=== PATIENT | male | born 1965 | race Native Hawaiian/Other Pacific Islander ===

== ENCOUNTER 2019-01-27 13:02 | Inpatient (IN) | payer BC ==
[2019-01-27] MEDS ORDERED: ASPIRIN 81 MG PO STA (13:19)
[2019-01-27] MEDS: NITROGLYCERIN SL TABS 0.4 MG TAB SUBLINGUAL STA ×2 (13:25→13:31)
[2019-01-27] MEDS: SODIUM CHLORIDE 0.9% 1,000 ML IV STA ×2 (13:34→15:30)
[2019-01-27] MEDS ORDERED: ONDANSETRON 4 MG/2 ML VIAL IVP STA (13:35)
[2019-01-27 13:43] LABS: Basophils # (A) 0.1 k/uL (0-0.2); Basophils % (A) 2 %; Eosinophils # (A) 0.1 k/uL (0-0.7); Eosinophils % (A) 1 %; HCT 46.6 % (39.0-53.0); HGB 15.6 gm/dL (13.0-17.5); Lymphocytes # (A) 2.8 k/uL (1.0-4.8); Lymphocytes % (A) 39 %; MCH 28.6 pg (25.0-35.0); MCHC 33.4 g/dL (31.0-37.0); MCV 85.5 fL (80.0-100.0); Mean Platelet Volume 6.2; Monocytes # (A) 0.3 k/uL (0-1.0); Monocytes % (A) 4 %; Neutrophils # (A) 3.8 k/uL (1.3-7.7); Neutrophils % (A) 52 %; Platelet Count 287 k/uL (150-450); RBC 5.46 m/uL (4.30-5.90); RDW 12.6 % (11.5-15.5); WBC 7.3 k/uL (3.8-10.6)
[2019-01-27] MEDS ORDERED: HEPARIN SODIUM,PORCINE 5,000 UNIT/ML 1 ML VIAL IV STA (13:43)
[2019-01-27] MEDS ORDERED: ATORVASTATIN 80 MG TAB PO STA (13:45)
--- NOTE | 2019-01-27 13:45 | ED ---
Chest Pain HPI - General Chief Complaint: Chest Pain Stated Complaint: chest pain Time Seen by Provider: 01/27/19 13:14 Source: patient, RN notes reviewed Mode of arrival: wheelchair Limitations: no limitations - History of Present Illness Initial Comments: This a 53-year-old male with no prior history of heart disease who presents with complaints of the onset 30 minutes prior to arrival of retrosternal chest pain he states is about 4/10 severity with some radiation to his jaw. He states he's never anything like this before except for about a week ago he had an episode like this lasted about 30 minutes and then resolved spontaneously. He does state he has some nausea and sweaty also started developing some vomiting. Patient does state he is a nonsmoker MD Complaint: chest pain - Related Data Home Medications Medication Instructions Recorded Confirmed Insulin Aspart (For Pump) [NovoLOG 0.01 unit SQ-PUMP CONTINUOUS 01/27/19 01/27/19 (For Pump)] Allergies Allergy/AdvReac Type Severity Reaction Status Date / Time No Known Allergies Allergy Verified 01/27/19 13:29 Review of Systems ROS Statement: Those systems with pertinent positive or pertinent negative responses have been documented in the HPI. ROS Other: All systems not noted in ROS Statement are negative. EKG Findings - EKG Results: EKG: interpreted by ERMD (EKG done at the time of arrival showed a normal sinus rhythm a [address] depression in the anterior and lateral leads. He appeared of 01 42 ventricular rate 76 and QRS 92 QT since QTC 44/454 this is changed from an EKG done in his doctor's office on 11/20/2018 which showed a normal sinus rhythm.) Past Medical History Past Medical History: Asthma, Diabetes Mellitus History of Any Multi-Drug Resistant Organisms: None Reported Additional Past Surgical History / Comment(s): eye surgery Past Psychological History: No Psychological Hx Reported Smoking Status: Never smoker Past Alcohol Use History: None Reported Past Drug Use History: None Reported General Exam - General Exam Comments Initial Comments: This is a well-developed well-nourished awake alert oriented 3 male who does appear to be in distress Limitations: no limitations General appearance: alert, anxious, in distress Head exam: Present: atraumatic, normocephalic, normal inspection Eye exam: Present: normal appearance, PERRL, EOMI. Absent: scleral icterus, conjunctival injection, periorbital swelling ENT exam: Present: normal exam, mucous membranes moist Neck exam: Present: normal inspection. Absent: tenderness, meningismus, lymphadenopathy Respiratory exam: Present: normal lung sounds bilaterally. Absent: respiratory distress, wheezes, rales, rhonchi, stridor Cardiovascular Exam: Present: regular rate, normal rhythm, normal heart sounds. Absent: systolic murmur, diastolic murmur, rubs, gallop, clicks GI/Abdominal exam: Present: soft, normal bowel sounds. Absent: distended, tenderness, guarding, rebound, rigid Extremities exam: Present: normal inspection, full ROM, normal capillary refill. Absent: tenderness, pedal edema, joint swelling, calf tenderness Back exam: Present: normal inspection Neurological exam: Present: alert, oriented X3, CN II-XII intact Psychiatric exam: Present: normal affect, normal mood Skin exam: Present: warm, dry, intact, normal color. Absent: rash Course Vital Signs 01/27/19 01/27/19 01/27/19 13:05 13:31 13:41 Temperature 98.2 F Pulse Rate 84 84 87 Respiratory 18 18 18 Rate Blood Pressure 129/68 173/81 148/81 O2 Sat by Pulse 100 99 100 Oximetry 01/27/19 13:45 Temperature Pulse Rate 105 H Respiratory 20 Rate Blood Pressure 140/80 O2 Sat by Pulse 100 Oximetry - Reevaluation(s) Reevaluation #1: 01/27/19 13:39 Patient continued had pain in spite of the initial treatment repeat EKG did show evidence of ST elevation myocardial infarction with anteroseptal and lateral injury pattern. Ventricular rate 87. Interval 142 QRS 100 QT since QTC 42/483 Reevaluation #2: 01/27/19 14:40 Case was discussed with cardiology Dr. Cohen it comes the emergency department see the patient also did discuss the case with Dr. Yepez. Chest Pain MDM - MDM Patient had changes EKG indicative of an acute STEMI. Patient did go to the [facility]. Critical Care Time Critical Care Time: Yes Critical Care Time: 31 minutes of critical care time which included the initial presentation with history physical lab orders and x-ray orders will for reevaluation the patient to responsive therapy discussion with cardiology discussion with Dr. Yepez. Disposition Clinical Impression: ST elevation myocardial infarction (STEMI), Chest pain, Acute coronary syndrome Disposition: ADMITTED IP TO THIS HOSP Condition: Serious
[2019-01-27 13:51] LABS: ALT 28 U/L (21-72); AST 31 U/L (17-59); African American GFR (CKD) >90 (>60 ml/min/1.73 sqM); Albumin 4.3 g/dL (3.5-5.0); Alkaline Phosphatase 147 U/L (38-126); Anion Gap 12 mmol/L; Blood Urea Nitrogen 19 mg/dL (9-20); Calcium 9.6 mg/dL (8.4-10.2); Carbon Dioxide 22 mmol/L (22-30); Chloride 105 mmol/L (98-107); Glucose 237 mg/dL (74-99); Magnesium 1.9 mg/dL (1.6-2.3); Potassium 3.9 mmol/L (3.5-5.1); Sodium 139 mmol/L (137-145); Total Bilirubin 0.6 mg/dL (0.2-1.3); Total Protein 7.5 g/dL (6.3-8.2)
[2019-01-27] MEDS ORDERED: IV FLUID CONTINUATION 800 ML IV ONE (13:55)
[2019-01-27] MEDS ORDERED: MIDAZOLAM (PF) 2 MG/2 ML VIAL IV ONE ×2 (14:06→14:07)
[2019-01-27] MEDS: HYDROmorphone 1 MG/ML 1 ML SYRINGE IVP ONE ×2 (14:07→14:26)
[2019-01-27] MEDS ORDERED: HEPARIN SODIUM 1,000 UN/ML (10ML VL) IV ONE (14:13)
[2019-01-27] MEDS ORDERED: TIROFIBAN BOLUS 12.5MG/250 ML BAG IV ONE (14:14)
[2019-01-27 14:17] LABS: D-Dimer 0.29 mg/L FEU (<0.60); INR 0.9 (<1.2); Prothrombin Time 9.8 sec (9.0-12.0)
[2019-01-27] MEDS ORDERED: TIROFIBAN 12.5MG-250ML NS 250 ML IV ONE (14:17)
[2019-01-27] MEDS ORDERED: niCARdipine Syringe (1,000 mcg/10 mL) INTRACORON ONE (14:31)
[2019-01-27] MEDS ORDERED: IOPAMIDOL-370 100ML BTL INJ ONE ×2 (14:34→14:43)
[2019-01-27] MEDS ORDERED: NITROGLYCERIN 1000MCG/10ML SYRINGE INTRACORON ONE (14:39)
[2019-01-27] MEDS ORDERED: TICAGRELOR 90 MG TAB PO ONE (14:56)
[2019-01-27] MEDS ORDERED: RX INFO: IV CONTRAST WAS GIVEN 1 EACH MISC MISCELLANE PRN (15:05)
[2019-01-27] MEDS ORDERED: NITROGLYCERIN SL TABS 0.4 MG TAB SUBLINGUAL PRN (15:05)
[2019-01-27] MEDS ORDERED: ATROPINE SULFATE 0.1 MG/ML 10ML SYRINGE IV PRN (15:05)
[2019-01-27] MEDS ORDERED: MAG HYDROX/AL HYDROX/SIMETH 30 ML CUP PO PRN (15:05)
[2019-01-27] MEDS ORDERED: ZOLPIDEM 5 MG TAB PO PRN (15:05)
[2019-01-27] MEDS: SODIUM CHLORIDE 0.9% 1,000 ML IV SCH (15:30)
[2019-01-27 15:38] LABS: Glucose,Whole Blood 200 mg/dL (75-99)
[2019-01-27] MEDS ORDERED: INSULIN DETEMIR (LEVEMIR) 100 UNIT/ML SYR SQ ONE (17:00)
[2019-01-27] MEDS: INSULIN ASPART (NovoLOG) 100 UNIT/ML VIAL SQ SCH ×2 (17:19→21:01)
[2019-01-27 17:35] LABS: Glucose,Whole Blood 174 mg/dL (75-99)
[2019-01-27 20:57] LABS: Glucose,Whole Blood 284 mg/dL (75-99)
[2019-01-27] MEDS ORDERED: METOPROLOL TARTRATE 12.5 MG TAB PO SCH (21:00)
[2019-01-27] MEDS: ATORVASTATIN 80 MG TAB PO SCH (21:01)
[2019-01-27] MEDS: LOSARTAN 50 MG TAB PO SCH (21:01)
--- NOTE | 2019-01-27 21:10 | CC ---
CARDIAC CATHETERIZATION REPORT DATE OF SERVICE: 01/27/2019 PROCEDURES: 1. Left heart catheterization and coronary angiography. 2. Percutaneous transluminal coronary angioplasty and stenting of totally occluded mid LAD in the setting of an acute anterior ST-elevation myocardial infarction with 2 drug-eluting stents. 3. Percutaneous transluminal coronary angioplasty and stenting of mid circumflex coronary artery with a drug-eluting stent. PERFORMED BY: Dr. Damien Spicer. SEDATION: Moderate conscious sedation time was 56 minutes. Patient was administered Versed and Dilaudid. His oxygen saturation, hemodynamics and EKG were monitored closely. CLINICAL INFORMATION: Mr. Miguel Mendoza is a 53-year-old type 1 diabetic who is on insulin pump, came into the hospital with chest pain. He had chest pain on and off for about a week, which he ignored. He came in today with chest pain and had lateral wall ST-segment depression. However, while he was in the ER he developed another bout of chest pain, had nausea, vomiting and then demonstrated ST-elevation in anterolateral leads and was advised prompt cardiac catheterization. He was brought up to the cardiac labor conciliator. I saw the patient in the lab, explained to him the procedure and went on to perform this expeditiously after talking to his daughter. PROCEDURE NOTE: Under local anesthesia and strict aseptic precautions, a 6-Slovenian introducer was placed in the right femoral artery. I started out with a left Jasmina catheter. Initially I used a JL4, but it was not easy to cannulate. I switched over to a JL3.5 guide catheter and cannulated the left coronary artery. I noted that the LAD was totally occluded in the mid portion and circumflex had a 90% mid lesion after obtuse marginal branch and the posterolateral branch. I performed intervention of the LAD and circumflex expeditiously and then performed coronary angiography of the RCA and checked pressures in the left ventricle but did not perform an LV-gram. CARDIAC CATHETERIZATION FINDINGS: The left ventricular end-diastolic pressure was 18 mmHg without any gradient across the aortic valve. CORONARY ANGIOGRAPHY FINDINGS: LEFT MAIN CORONARY ARTERY: Short, patent, disease-free vessel that immediately bifurcates into LAD and circumflex. LEFT ANTERIOR DESCENDING CORONARY ARTERY: This vessel is totally occluded in the mid portion after a small diagonal and septal branch with some thrombus within the vessel and no antegrade flow. LEFT POSTERIOR CIRCUMFLEX CORONARY ARTERY: Probably a codominant or nondominant vessel. Gives off a first obtuse marginal and then there are 2 small branches that run in the AV groove. Then the continuation of circumflex has an 80% eccentric lesion, and the caliber of the vessel improves and it runs in the posterolateral distribution. Mid circumflex therefore has an 80% eccentric lesion with haziness, raising the possibility of a thrombus in circumflex as well. RIGHT CORONARY ARTERY: Technically dominant vessel. No significant disease. Gives off the PDA branch distally and a small PLV. No significant disease. Only minor irregularities noted. Left ventriculogram was not performed. PERCUTANEOUS CORONARY INTERVENTION PROCEDURE DETAILS: Using a 3.5 left Jasmina guide catheter, I cannulated the left coronary artery and I used a run-through wire to cross the lesion. One single inflation was given at the site of total occlusion with a 2.5 caliber 12 mm Trek balloon. The entire vessel opened up with good flow. Patient had relief of chest pain and improvement in EKG changes. I then deployed a 15 mm long 3.0 caliber Xience stent at the site of total occlusion, and proximal to it there was another lesion of about 50%. This was addressed with an 8 mm 3.0 caliber Xience stent. Excellent angiographic result was achieved without complication. I then used the same wire and crossed the circumflex lesion without predilatation. A 15 mm long 2.5 caliber Xience stent was deployed with excellent angiographic result. Patient had mild chest discomfort and also some EKG changes in I, aVL and in apical leads as well. The patient received about 5500 units of heparin totally and also received Aggrastat drip and his ACT was 262. Patient received 180 mg of Brilinta. Excellent angiographic result was achieved without complication. The sheath was taken out and Angio-Seal device used to secure hemostasis. Because of some oozing, I applied a FemoStop. The patient tolerated procedure well without complication. Results were discussed with the patient and his daughter. I also spoke to his primary care physician, Dr. Fierro. MMSKYLARL / CHAMPN: [id number] / MTDD
--- NOTE | 2019-01-27 21:49 | CONS ---
CONSULTATION DATE OF SERVICE: 01/27/2019 This is a 53-year-old patient with type 1 diabetes mellitus, on an insulin pump, under the care of Dr. Alejandrina Fierro. He came into the hospital with complaints of chest tightness and pressure and retrosternal discomfort, 4/10 in severity, with radiation to the jaw. He had similar symptoms about a week ago, less intense, that lasted about 30 minutes, but he did not seek medical attention. He also had some nausea and diaphoresis. He came into the hospital with similar complaints and had ST-segment depression in lateral leads. There were prominent precordial T-waves noted. Subsequently he profound chest discomfort and emesis, and repeat EKG revealed significant ST elevation suggestive of acute anterior ST-elevation SC. He was immediately brought into the clinical laboratory science professor after being seen by nurse practitioner Dr. Nelly Cohen. I saw the patient in the clinical laboratory science professor, evaluated him and went and spoke to his daughter as well. Patient's presentation was that of an acute anterior ST- elevation SC with a similar episode and ongoing chest pain for about a week or so. He has no hypertension, does not take any other medications. He is on insulin pump and tells me that his A1c was good. MEDICATIONS: Insulin (on insulin pump). PAST MEDICAL HISTORY: Past medical history is remarkable for bronchial asthma and type 1 diabetes. No history of any previous major surgeries. ALLERGIES: NONE. PHYSICAL EXAMINATION: Blood pressure 150/80. Pulse rate is about 80 per minute, regular. HEENT unremarkable. Fundus was not examined by me. Neck is supple. No JVD. I do not hear a carotid bruit. Heart exam reveals S1, S2. Distant heart sounds. No significant murmurs. Lungs reveal decent air entry. Abdomen is soft. Lower extremities reveal diminished pulses. Central nervous system grossly within normal limits. EKG revealed anterior ST elevation involving lead I, aVL, V1 to V5. IMPRESSION: 1. Acute anterior wall ST-elevation myocardial infarction. 2. Type 1 diabetes, on insulin pump. RECOMMENDATIONS: I recommended prompt cardiac catheterization and PCI. I then proceeded to perform this expeditiously. Moderate conscious sedation time was 56 minutes. MMODL / IJN: [id number] /
[2019-01-28 05:09] LABS: Basophils % (A) 1 %; Eosinophils # (A) 0.1 k/uL (0-0.7); Eosinophils % (A) 2 %; HCT 39.2 % (39.0-53.0); HGB 13.2 gm/dL (13.0-17.5); Lymphocytes # (A) 2.3 k/uL (1.0-4.8); Lymphocytes % (A) 31 %; MCH 28.7 pg (25.0-35.0); MCHC 33.7 g/dL (31.0-37.0); MCV 85.1 fL (80.0-100.0); Mean Platelet Volume 5.5; Monocytes # (A) 0.4 k/uL (0-1.0); Monocytes % (A) 5 %; Neutrophils # (A) 4.4 k/uL (1.3-7.7); Neutrophils % (A) 60 %; Platelet Count 277 k/uL (150-450); RDW 12.4 % (11.5-15.5); WBC 7.4 k/uL (3.8-10.6)
[2019-01-28 05:21] LABS: African American GFR (CKD) >90 (>60 ml/min/1.73 sqM); Anion Gap 6 mmol/L; Blood Urea Nitrogen 13 mg/dL (9-20); Calcium 8.4 mg/dL (8.4-10.2); Carbon Dioxide 26 mmol/L (22-30); Chloride 105 mmol/L (98-107); Glucose 194 mg/dL (74-99); Potassium 4.1 mmol/L (3.5-5.1); Sodium 137 mmol/L (137-145)
[2019-01-28 06:58] LABS: Glucose,Whole Blood 174 mg/dL (75-99)
[2019-01-28] MEDS: SODIUM CHLORIDE 0.9% 1,000 ML IV SCH (06:58)
[2019-01-28] MEDS ORDERED: INSULIN DETEMIR (LEVEMIR) 100 UNIT/ML SYR SQ SCH (07:00)
[2019-01-28] MEDS: INSULIN ASPART (NovoLOG) 100 UNIT/ML VIAL SQ SCH ×4 (07:00→15:44)
[2019-01-28] MEDS: TICAGRELOR 90 MG TAB PO SCH ×2 (08:40→20:03)
[2019-01-28] MEDS: ASPIRIN 81 MG PO SCH (08:40)
[2019-01-28] MEDS ORDERED: METOPROLOL TARTRATE 25 MG TAB PO SCH (09:00)
[2019-01-28 10:47] VITALS: BMI 31.4
--- NOTE | 2019-01-28 11:02 | PN ---
PROGRESS NOTE Mr. Mendoza presented with acute anterior OR yesterday underwent stenting of LAD and circumflex marginal/mid circumflex. He is doing well, hemodynamically stable. No chest pain. Right groin has a small area of ecchymosis, no bruit. Vitals are stable. Blood pressure 118/70, pulse rate is 78 per minute. S1, S2 heard normally. Heart sounds heard distantly. No significant murmurs. Lungs are clear. No JVD or carotid bruit. Right groin pulse is good. There is small area of ecchymosis, no bruit. I am recommending that we increase the metoprolol to 25 mg in the morning, 12.5 in the evening, increase activity, move him to telemetry later this evening. Echo will be performed today. MMODL / IJN: [id number] /
[2019-01-28 12:07] LABS: Glucose,Whole Blood 122 mg/dL (75-99)
--- NOTE | 2019-01-28 12:56 | ECHOF ---
Referral Reason:Ant STEMI MEASUREMENTS -------- HEIGHT: 160.0 cm WEIGHT: 74.8 kg BP: 110/70 LVIDd: 3.7 cm (3.9 - 5.3) LVPWd: 1.4 cm (0.6 - 1.1) IVSs: 1.4 cm LVIDs: 2.5 cm LVPWs: 1.5 cm LA Diam: 4.0 cm (2.7 - 3.8) LAESV Index (A-L): 27.62 ml/m Ao Diam: 3.0 cm (2.0 - 3.7) AV Cusp: 1.0 cm (1.5 - 2.6) LA Diam: 3.6 cm (2.7 - 3.8) MV EXCURSION: 15.965 mm (> 18.000) MV EF SLOPE: 119 mm/s (70 - 150) EPSS: 0.7 cm MV E Nirmal: 0.91 m/s MV DecT: 128 ms MV A Nirmal: 0.75 m/s MV E/A Ratio: 1.22 RAP: 5.00 mmHg RVSP: 43.00 mmHg TAPSE: 16.40 mm FINDINGS -------- Sinus rhythm. This was a techncally difficult study with suboptimal views, , Lumason utilized for enhancement of im ages. There is mild concentric left ventricular hypertrophy. Overall left ventricular systolic function i s moderately impaired with, an EF between 35 - 40 %. Apical anterior LV wall motion is hypokinetic. Apical lateral LV wall motion is hypokinetic. Apical inferior LV wall motion is hypokinetic. Apical septum LV wall motion is hypokinetic. Chama Hypokinesis. The right ventricle is normal in size. The left atrium is moderately dilated. Normal LA size by volume 22+/-6 ml/m2. The right atrial size is normal. 5.0mg OF Lumason UTLIZED: 2 OR MORE WALL SEGMENTS NOT VISUALIZED. IAS not well Visualized. The aortic valve is trileaflet, and appears structurally normal. No aortic stenosis or regurgitation. Mild mitral annular calcification present. Mild mitral regurgitation is present. Mild tricuspid regurgitation present. There is mild pulmonary hypertension. The right ventricular systolic pressure, as measured by Doppler, is 43.00mmHg. Trace/mild (physiologic) pulmonic regurgitation. The aortic root size is normal. There is no pericardial effusion. CONCLUSIONS -------- 1. Sinus rhythm. 2. This was a techncally difficult study with suboptimal views, , Lumason utilized for enhancement of images. 3. There is mild concentric left ventricular hypertrophy. 4. Overall left ventricular systolic function is moderately impaired with, an EF between 35 - 40 %. 5. Apical anterior LV wall motion is hypokinetic. 6. Apical lateral LV wall motion is hypokinetic. 7. Apical inferior LV wall motion is hypokinetic. 8. Apical septum LV wall motion is hypokinetic. 9. Chama Hypokinesis. 10. The right ventricle is normal in size. 11. The left atrium is moderately dilated. 12. The right atrial size is normal. 13. 5.0mg OF Lumason UTLIZED: 2 OR MORE WALL SEGMENTS NOT VISUALIZED. 14. IAS not well Visualized. 15. The aortic valve is trileaflet, and appears structurally normal. No aortic stenosis or regurgitat ion. 16. Mild mitral annular calcification present. 17. Mild mitral regurgitation is present. 18. Mild tricuspid regurgitation present. 19. There is mild pulmonary hypertension. 20. The right ventricular systolic pressure, as measured by Doppler, is 43.00mmHg. 21. Trace/mild (physiologic) pulmonic regurgitation. 22. The aortic root size is normal. 23. There is no pericardial effusion. ROUTING CLERK: Mallory Bullard RDCS
--- NOTE | 2019-01-28 13:25 | P.HPIM ---
History of Present Illness H&P Date: 01/28/19 Chief Complaint: chest pain This is a 53-year-old male patient of Dr. Campos with past medical history of diabetes mellitus type 2 diagnosed at age 24 on insulin pump for the past 12 years, mild intermittent asthma. Patient states that about one week ago he had an episode where he experienced sweating and chest pressure but it went away after 45 minutes. Yesterday he was working on his stomach and he had some chest pain along with sweats and he had to go in the house. He thought he was having heatstroke. He also experienced nausea and sweating and subsequently vomiting. He came into [facility] emergency center. Vital signs were stable. EKG showed ST elevation in the anterior lateral leads. Patient was called and acute STEMI and went directly to the Animal Nurse and found to have a totally occluded LAD and had 2 drug-eluting stents placed. Circumflex had 80% lesion status post drug-eluting stent. Patient was transferred to the intensive care unit where he is seen today. Patient's blood sugars have been elevated and we will plan to resume his insulin pump. He states he has all his supplies at the bedside. He denies having any chest pain, shortness of breath, lightheadedness or dizziness. He has been hemodynamically stable. Patient may transfer out of the intensive care unit later today. Review of Systems Constitutional: Reports fatigue, Reports sweats, Denies anorexia, Denies fever, Denies poor appetite Ears, nose, mouth and throat: Denies dysphagia, Denies headache, Denies nasal congestion, Denies nasal discharge, Denies sore throat Cardiovascular: Reports chest pain, Denies shortness of breath Respiratory: Denies cough, Denies cough with sputum, Denies dyspnea, Denies excessive sputum, Denies hemoptysis, Denies home oxygen, Denies wheezing Gastrointestinal: Reports nausea, Reports vomiting, Denies abdominal pain, Denies diarrhea Genitourinary: Denies dysuria, Denies urinary retention Musculoskeletal: Denies frequent falls, Denies gait dysfunction, Denies muscle weakness, Denies myalgias Integumentary: Denies pruritus, Denies rash, Denies wounds Neurological: Denies change in mentation, Denies change in speech, Denies confusion, Denies numbness, Denies seizures, Denies weakness Endocrine: Denies fatigue, Denies weight change Past Medical History Past Medical History: Asthma, Diabetes Mellitus History of Any Multi-Drug Resistant Organisms: None Reported Additional Past Surgical History / Comment(s): eye surgery Smoking Status: Never smoker Additional Past Alcohol Use History / Comment(s): patient is a lifelong nonsmoker. He denies any illicit drug use, alcohol use. - Past Family History Father Additional Family Medical History / Comment(s): Patient does not know anything about his father. Mother Additional Family Medical History / Comment(s): Mother is alive with no major medical problems. Patient has 1 brother and sisters with no major medical problems. Medications and Allergies Home Medications Medication Instructions Recorded Confirmed Type Insulin Aspart (For Pump) [NovoLOG 0.01 unit SQ-PUMP CONTINUOUS 01/27/19 01/27/19 History (For Pump)] Allergies Allergy/AdvReac Type Severity Reaction Status Date / Time No Known Allergies Allergy Verified 01/27/19 13:29 Physical Exam Vitals: Vital Signs Temp Pulse Resp BP BP Pulse Ox 01/28/19 10:00 68 10 L 103/68 94 L 01/28/19 09:30 82 19 107/70 93 L 01/28/19 09:00 78 15 105/60 94 L 01/28/19 08:30 76 14 105/60 92 L 01/28/19 08:00 98.9 F 80 12 110/67 93 L 01/28/19 07:52 97 01/28/19 07:30 77 14 125/62 91 L 01/28/19 07:00 77 19 106/70 96 01/28/19 06:30 72 20 96/58 96 01/28/19 06:00 80 17 110/70 96 01/28/19 05:30 73 18 101/68 95 01/28/19 05:00 74 12 106/65 97 01/28/19 04:30 78 18 108/74 95 01/28/19 04:00 98.9 F 78 20 97/57 93 L 01/28/19 03:30 80 16 94/58 92 L 01/28/19 03:00 80 20 117/70 91 L 01/28/19 02:30 76 21 107/71 92 L 01/28/19 02:00 83 22 99/60 91 L 01/28/19 01:30 81 19 98/61 91 L 01/28/19 01:00 77 18 100/64 90 L 01/28/19 00:30 79 16 107/56 91 L 01/28/19 00:00 99.3 F 85 18 112/71 92 L 01/27/19 23:30 82 20 120/80 91 L 01/27/19 23:00 84 21 112/75 90 L 01/27/19 22:30 81 17 119/78 91 L 01/27/19 22:00 80 18 122/85 91 L 01/27/19 21:30 85 16 125/78 92 L 01/27/19 21:00 87 21 129/78 94 L 01/27/19 20:44 98.7 F 87 17 116/69 93 L 01/27/19 20:40 82 15 116/69 94 L 01/27/19 20:30 80 20 138/74 94 L 01/27/19 20:20 86 16 138/74 94 L 01/27/19 20:10 91 21 126/77 93 L 01/27/19 20:00 98.6 F 85 14 131/79 94 L 01/27/19 19:50 83 19 92 L 01/27/19 19:40 90 21 127/81 93 L 01/27/19 19:30 87 17 93 L 01/27/19 19:00 95 14 135/85 93 L 01/27/19 18:50 93 11 L 135/85 92 L 01/27/19 18:42 11 L 127/84 94 L 01/27/19 18:40 101 H 14 127/84 93 L 01/27/19 18:30 96 16 148/86 93 L 01/27/19 18:20 102 H 21 148/86 93 L 01/27/19 18:10 101 H 16 138/89 94 L 01/27/19 18:00 99 10 L 121/78 93 L 01/27/19 17:50 96 14 120/76 120/78 91 L 01/27/19 17:40 94 7 L 122/92 91 L 01/27/19 17:30 94 9 L 124/75 91 L 01/27/19 17:20 77 15 124/75 92 L 01/27/19 17:10 78 17 122/85 92 L 01/27/19 16:50 84 17 116/80 118/78 93 L 01/27/19 16:40 76 17 126/77 92 L 01/27/19 16:20 78 13 116/78 93 L 01/27/19 16:15 13 116/80 95 01/27/19 16:00 80 9 L 127/80 126/77 96 01/27/19 15:45 10 L 128/82 94 L 01/27/19 15:40 86 11 L 128/82 94 L 01/27/19 15:30 97.8 F 15 125/80 94 L 01/27/19 15:24 75 8 L 93 L 01/27/19 13:50 140/80 01/27/19 13:45 105 H 20 140/80 100 01/27/19 13:41 87 18 148/81 100 01/27/19 13:40 85 19 139/75 100 01/27/19 13:31 84 18 173/81 99 01/27/19 13:30 83 17 157/88 99 01/27/19 13:20 89 11 L 157/88 100 01/27/19 13:16 18 01/27/19 13:05 98.2 F 84 18 129/68 100 Intake and Output 01/27/19 01/28/19 01/28/19 22:59 06:59 14:59 Intake Total 1225 900 300 Output Total 400 1475 50 Balance 825 -575 250 Intake: IV 1225 900 300 Sodium Chloride 0.9% 1, 700 300 000 ml @ 100 mls/hr IV . Q10H [facility] Rx#:[id number] Sodium Chloride 0.9% 1, 525 600 300 000 ml @ 75 mls/hr IV . [id number] [facility] Rx#:[id number] Output: Urine 400 1475 50 Other: Voiding Method Urinal Urinal Urinal # Voids 1 Weight 80.4 kg 80.4 kg Gen: This is a 53-year-old male. He is resting in ICU bed and appears to be comfortable and in no acute distress. HEENT: Head is atraumatic, normocephalic. Pupils equal, round. Sclerae is anicteric. NECK: Supple. No JVD. No lymphadenopathy. No thyromegaly. LUNGS: Clear to auscultation. No wheezes or rhonchi. No intercostal retractions. HEART: Regular rate and rhythm. No murmur. ABDOMEN: Soft. Bowel sounds are present. No masses. No tenderness. EXTREMITIES: No pedal edema. No calf tenderness. NEUROLOGICAL: Patient is awake, alert and oriented x3. Cranial nerves 2 through 12 are grossly intact. Results CBC & Chem 7: 01/28/19 04:19 01/28/19 04:21 Labs: Abnormal Lab Results - Last 24 Hours (Table) 01/27/19 01/27/19 01/27/19 Range/Units 13:32 15:25 17:18 Glucose 237 H (74-99) mg/dL POC Glucose (mg/dL) 200 H 174 H (75-99) mg/dL Alkaline Phosphatase 147 H (38-126) U/L Troponin I (0.000-0.034) ng/mL 01/27/19 01/27/19 01/28/19 Range/Units 20:22 20:46 01:14 Glucose (74-99) mg/dL POC Glucose (mg/dL) 284 H (75-99) mg/dL Alkaline Phosphatase (38-126) U/L Troponin I 22.900 H* 19.000 H* (0.000-0.034) ng/mL 01/28/19 01/28/19 Range/Units 04:21 06:46 Glucose 194 H (74-99) mg/dL POC Glucose (mg/dL) 174 H (75-99) mg/dL Alkaline Phosphatase (38-126) U/L Troponin I (0.000-0.034) ng/mL Thrombosis Risk Factor Assmnt - Choose All That Apply Any of the Below Risk Factors Present?: Yes Each Factor Represents 1 point: Acute VA Other Risk Factors: No Other congenital or acquired thrombophilia - If yes, enter type in comment: No Thrombosis Risk Factor Assessment Total Risk Factor Score: 1 Thrombosis Risk Factor Assessment Level: Low Risk Assessment and Plan Plan: 1. Acute anterior lateral ST elevated myocardial infarction status post heart catheterization, PTCA and 3 stents. Continue aspirin 81 mg daily, Lipitor 80 mg at bedtime, Lopressor 25 mg daily and 12.5 at bedtime, Brilinta 90 mg twice daily. 2. Diabetes mellitus type 1 on insulin pump. Blood sugars have been elevated, patient will be resumed on insulin pump. 3. Mild intermittent not requiring medication. Patient will be admitted to the hospital for a minimum of 2 night stay. Discharge plan: Return home Impression and plan of care have been directed as dictated by the signing physician. Patricia Nolen nurse practitioner acting as scribe for signing physician.
[2019-01-28] MEDS ORDERED: INSPUCOR MISCELLANE PRN (16:07)
[2019-01-28] MEDS ORDERED: INSULIN PUMP BASAL RATES 1 EACH MISC MISCELLANE PRN (16:07)
[2019-01-28] MEDS: INSULIN PUMP MEAL BOLUS 1 UNIT MISC MISCELLANE SCH ×2 (17:36→20:13)
[2019-01-28 17:42] LABS: Glucose,Whole Blood 273 mg/dL (75-99)
[2019-01-28] MEDS: ATORVASTATIN 80 MG TAB PO SCH (20:04)
[2019-01-28] MEDS: METOPROLOL TARTRATE 12.5 MG TAB PO SCH (20:04)
[2019-01-28] MEDS: LOSARTAN 50 MG TAB PO SCH (20:04)
[2019-01-28 20:22] LABS: Glucose,Whole Blood 172 mg/dL (75-99)
[2019-01-29] MEDS ORDERED: ONDANSETRON 4 MG/2 ML VIAL IVP PRN (04:38)
[2019-01-29 05:03] LABS: Basophils % (A) 1 %; Eosinophils # (A) 0.2 k/uL (0-0.7); Eosinophils % (A) 2 %; HCT 40.7 % (39.0-53.0); HGB 13.3 gm/dL (13.0-17.5); Lymphocytes # (A) 2.4 k/uL (1.0-4.8); Lymphocytes % (A) 28 %; MCH 28.7 pg (25.0-35.0); MCHC 32.5 g/dL (31.0-37.0); MCV 88.1 fL (80.0-100.0); Mean Platelet Volume 6.1; Monocytes # (A) 0.4 k/uL (0-1.0); Monocytes % (A) 5 %; Neutrophils # (A) 5.3 k/uL (1.3-7.7); Neutrophils % (A) 62 %; Platelet Count 244 k/uL (150-450); RBC 4.63 m/uL (4.30-5.90); RDW 12.6 % (11.5-15.5); WBC 8.5 k/uL (3.8-10.6)
[2019-01-29 05:52] LABS: African American GFR (CKD) >90 (>60 ml/min/1.73 sqM); Anion Gap 6 mmol/L; Blood Urea Nitrogen 12 mg/dL (9-20); Calcium 8.7 mg/dL (8.4-10.2); Carbon Dioxide 28 mmol/L (22-30); Chloride 104 mmol/L (98-107); Glucose 71 mg/dL (74-99); Potassium 3.6 mmol/L (3.5-5.1); Sodium 138 mmol/L (137-145)
[2019-01-29] MEDS: INSULIN PUMP MEAL BOLUS 1 UNIT MISC MISCELLANE SCH ×4 (06:53→20:40)
[2019-01-29 07:16] LABS: Glucose,Whole Blood 52 mg/dL (75-99)
[2019-01-29 08:07] LABS: Glucose,Whole Blood 119 mg/dL (75-99)
[2019-01-29 08:29] LABS: Glucose,Whole Blood 54 mg/dL (75-99)
[2019-01-29 08:29] LABS: Glucose,Whole Blood 45 mg/dL (75-99)
[2019-01-29] MEDS: METOPROLOL TARTRATE 50 MG TAB PO SCH (09:15)
[2019-01-29] MEDS: ASPIRIN 81 MG PO SCH (09:15)
[2019-01-29] MEDS: TICAGRELOR 90 MG TAB PO SCH ×2 (09:16→20:41)
[2019-01-29] MEDS ORDERED: POTASSIUM CHLORIDE ER 20 MEQ TAB.ER PO SCH (10:00)
[2019-01-29 12:12] LABS: Glucose,Whole Blood 113 mg/dL (75-99)
--- NOTE | 2019-01-29 14:58 | P.PN ---
Subjective Progress Note Date: 01/29/19 This is a 53-year-old male patient of Dr. Campos with past medical history of diabetes mellitus type 2 diagnosed at age 24 on insulin pump for the past 12 years, mild intermittent asthma. Patient states that about one week ago he had an episode where he experienced sweating and chest pressure but it went away after 45 minutes. Yesterday he was working on his stomach and he had some chest pain along with sweats and he had to go in the house. He thought he was having heatstroke. He also experienced nausea and sweating and subsequently vomiting. He came into [facility] emergency center. Vital signs were stable. EKG showed ST elevation in the anterior lateral leads. Patient was called and acute STEMI and went directly to the Tape Recording Machine Operator and found to have a totally occluded LAD and had 2 drug-eluting stents placed. Circumflex had 80% lesion status post drug-eluting stent. Patient was transferred to the intensive care unit where he is seen today. Patient's blood sugars have been elevated and we will plan to resume his insulin pump. He states he has all his supplies at t he bedside. He denies having any chest pain, shortness of breath, lightheadedness or dizziness. He has been hemodynamically stable. Patient may transfer out of the intensive care unit later today. 01/29: Echocardiogram reveals EF of 35-40% with mild concentric left hypertrophy, LV wall motion hypokinetic, mild mitral regurgitation, mild tricuspid regurgitation, mild pulmonary hypertension. Patient had hypoglycemia this morning down to 45 corrected now to 119. CBC and BMP within normal limits. Patient has been hemodynamically stable and is ready for transfer out of the intensive care unit. Lopressor has been increased by Dr. Jona arias to 50 g the morning and continue 12.5 at bedtime.. Patient has been started on losartan during this hospitalization as well. He denies having any chest pain or shortness of breath. Due to low blood sugar this morning around 6 AM, patient has been instructed to decrease his basal rate to 1.5 units per hour which he will do on his insulin pump. Patient is to maintain that while in hospital as he is eating less and he can resume his home dose at the time of discharge. Prescription for Brilinta has been sent to the pharmacy to check coverage. Anticipate discharge home tomorrow. Review of Systems Constitutional: Reports fatigue, Reports sweats, Denies anorexia, Denies fever, Denies poor appetite Ears, nose, mouth and throat: Denies dysphagia, Denies headache, Denies nasal congestion, Denies nasal discharge, Denies sore throat Cardiovascular: Reports chest pain, Denies shortness of breath Respiratory: Denies cough, Denies cough with sputum, Denies dyspnea, Denies excessive sputum, Denies hemoptysis, Denies home oxygen, Denies wheezing Gastrointestinal: Reports nausea, Reports vomiting, Denies abdominal pain, Denies diarrhea Genitourinary: Denies dysuria, Denies urinary retention Musculoskeletal: Denies frequent falls, Denies gait dysfunction, Denies muscle weakness, Denies myalgias Integumentary: Denies pruritus, Denies rash, Denies wounds Neurological: Denies change in mentation, Denies change in speech, Denies confusion, Denies numbness, Denies seizures, Denies weakness Endocrine: Denies fatigue, Denies weight change, reports abnormal blood sugars Objective - Vital Signs Vital signs: Vital Signs Temp 98.7 F 01/29/19 04:00 Pulse 84 01/29/19 04:00 Resp 18 01/29/19 04:00 BP 110/52 01/29/19 04:00 Pulse Ox 97 01/29/19 04:00 Intake & Output 01/28/19 01/29/19 01/29/19 18:59 06:59 18:59 Intake Total 675 150 Output Total 50 Balance 625 150 Weight 80.4 kg 81.2 kg Intake: IV 675 Sodium Chloride 0.9% 1, 675 000 ml @ 75 mls/hr IV . [id number] [facility] Rx#:[id number] Oral 150 Output: Urine 50 Other: Voiding Method Urinal Toilet # Voids 1 2 - Exam Gen: This is a 53-year-old male. He is resting in ICU bed and appears to be comfortable and in no acute distress. HEENT: Head is atraumatic, normocephalic. Pupils equal, round. Sclerae is anicteric. NECK: Supple. No JVD. No lymphadenopathy. No thyromegaly. LUNGS: Clear to auscultation. No wheezes or rhonchi. No intercostal retractions. HEART: Regular rate and rhythm. No murmur. ABDOMEN: Soft. Bowel sounds are present. No masses. No tenderness. EXTREMITIES: No pedal edema. No calf tenderness. NEUROLOGICAL: Patient is awake, alert and oriented x3. Cranial nerves 2 through 12 are grossly intact. - Labs CBC & Chem 7: 01/29/19 04:15 01/29/19 04:18 Labs: Abnormal Lab Results - Last 24 Hours (Table) 01/28/19 01/28/19 01/28/19 Range/Units 11:55 17:30 20:10 Glucose (74-99) mg/dL POC Glucose (mg/dL) 122 H 273 H 172 H (75-99) mg/dL 01/29/19 01/29/19 01/29/19 Range/Units 04:18 06:49 06:51 Glucose 71 L (74-99) mg/dL POC Glucose (mg/dL) 45 L 54 L (75-99) mg/dL 01/29/19 01/29/19 Range/Units 07:05 07:56 Glucose (74-99) mg/dL POC Glucose (mg/dL) 52 L 119 H (75-99) mg/dL Assessment and Plan Plan: 1. Acute anterior lateral ST elevated myocardial infarction status post heart catheterization, PTCA and 3 stents. Continue aspirin 81 mg daily, Lipitor 80 mg at bedtime, Lopressor increased 50 mg daily and 12.5 at bedtime, Brilinta 90 mg twice daily. Prescription for Brilinta sent to pharmacy to check coverage. Patient will be transferred out of the intensive care unit. 2. Diabetes mellitus type 1 on insulin pump. Blood sugars have been elevated, patient will be resumed on insulin pump. 3. Mild intermittent not requiring medication. 4. Hypertension. Losartan 50 mg at bedtime. Discharge plan: Return home Impression and plan of care have been directed as dictated by the signing physician. Patricia Nolen nurse practitioner acting as scribe for signing physician.
[2019-01-29 16:45] LABS: Glucose,Whole Blood 102 mg/dL (75-99)
[2019-01-29] MEDS: ATORVASTATIN 80 MG TAB PO SCH (20:41)
[2019-01-29] MEDS: LOSARTAN 50 MG TAB PO SCH (20:42)
[2019-01-29] MEDS: METOPROLOL TARTRATE 12.5 MG TAB PO SCH (20:42)
[2019-01-29 21:02] LABS: Glucose,Whole Blood 203 mg/dL (75-99)
--- NOTE | 2019-01-29 23:05 | PN ---
PROGRESS NOTE Mr. Mendoza is a gentleman who suffered from an anterior GA, underwent stenting of LAD and circumflex. He is feeling well. Denies any chest pain. He had a comfortable night overall. Echo revealed ejection fraction of 40% with wall motion abnormality consistent with LAD GA. Vitals are stable. No JVD. S1, S2 heard normally. Lungs are clear. Abdomen and lower extremity exam unchanged. No significant murmurs. We will continue current medications, but I will increase the metoprolol to 50 mg in the morning, 12.5 in the evening. Continue losartan. Increase activity and move him to telemetry. I discussed my thoughts in detail with the patient. Thank you very much for the consult. MMODL / IJN: [id number] /
[2019-01-30] MEDS: INSULIN PUMP MEAL BOLUS 1 UNIT MISC MISCELLANE SCH ×2 (06:31→13:08)
[2019-01-30 06:40] LABS: Glucose,Whole Blood 87 mg/dL (75-99)
[2019-01-30] MEDS: METOPROLOL TARTRATE 50 MG TAB PO SCH (08:31)
[2019-01-30] MEDS: ASPIRIN 81 MG PO SCH (08:31)
[2019-01-30] MEDS: TICAGRELOR 90 MG TAB PO SCH (08:31)
[2019-01-30 08:44] VITALS: RESP 16; TEMP 98
[2019-01-30 08:47] LABS: African American GFR (CKD) >90 (>60 ml/min/1.73 sqM); Anion Gap -1 mmol/L; Blood Urea Nitrogen 17 mg/dL (9-20); Calcium 8.6 mg/dL (8.4-10.2); Carbon Dioxide 35 mmol/L (22-30); Chloride 105 mmol/L (98-107); Glucose 94 mg/dL (74-99); Potassium 3.8 mmol/L (3.5-5.1); Sodium 139 mmol/L (137-145)
--- NOTE | 2019-01-30 09:01 | PN ---
PROGRESS NOTE Mr. Mcdonough is in sinus rhythm. Last night he went into what seems to be an IVCD of LBBB type but asymptomatic. EKG revealed sinus mechanism with IVCD and mild ST elevation that persists in the anterior leads. He is resting comfortably without symptoms. No symptoms of any angina. Vital signs are stable, S1-S2 heard normally. Lungs are clear. Abdomen and lower extremity exam unchanged. Plan is to increase activity and move him to telemetry. I will obtain a BMP today. Same medical regimen and gradual increase in activity. MMODL / IJN: [id number] /
[2019-01-30 12:10] LABS: Glucose,Whole Blood 112 mg/dL (75-99)
[2019-01-30 13:04] VITALS: BP 101/64; PULSE 66
--- NOTE | 2019-01-30 14:37 | P.DS ---
Providers Date of admission: 01/27/19 13:45 Expected date of discharge: 01/29/19 Attending physician: Alejandrina Fierro Consults: 01/27/19 15:05 Consult Physician Routine Consulting Provider: [facility] Consult Reason/Comments: Post Interventional patient Do you want consulting provider notified?: Already Contacted Primary care physician: [facility] Course: This is a 53-year-old male patient of Dr. Campos with past medical history of diabetes mellitus type 2 diagnosed at age 24 on insulin pump for the past 12 years, mild intermittent asthma. Patient states that about one week ago he had an episode where he experienced sweating and chest pressure but it went away after 45 minutes. Yesterday he was working on his stomach and he had some chest pain along with sweats and he had to go in the house. He thought he was having heatstroke. He also experienced nausea and sweating and subsequently vomiting. He came into [facility] emergency center. Vital signs were stable. EKG showed ST elevation in the anterior lateral leads. Patient was called and acute STEMI and went directly to the Higher Level Teaching Assistant and found to have a totally occluded LAD and had 2 drug-eluting stents placed. Circumflex had 80% lesion status post drug-eluting stent. Patient was transferred to the intensive care unit where he is seen today. Patient's blood sugars have been elevated and we will plan to resume his insulin pump. He states he has all his supplies at the bedside. He denies having any chest pain, shortness of breath, lightheadedness or dizziness. He has been hemodynamically stable. Patient may transfer out of the intensive care unit later today. 01/29: Echocardiogram reveals EF of 35-40% with mild concentric left hypertrophy, LV wall motion hypokinetic, mild mitral regurgitation, mild tricuspid regurgitation, mild pulmonary hypertension. Patient had hypoglycemia this morning down to 45 corrected now to 119. CBC and BMP within normal limits. 01/30: Patient remains in intensive care unit waiting for a cardiac stepdown unit bed. Patient has been seen by Dr. Spicer this morning cleared for discharge. He has been hemodynamically stable. We will add an incentive spirometry and patient will take this home. Home medications will be sent to his pharmacy. Patient will be discharged home today in stable condition. Discharge diagnoses: 1. Acute anterior lateral ST elevated myocardial infarction status post heart catheterization, PTCA and 3 stents. 2. Diabetes mellitus type 1 on insulin pump. 3. Mild intermittent asthma not requiring medication. Discharge plan: home Impression and plan of care have been directed as dictated by the signing physician. Patricia Nolen nurse practitioner acting as scribe for signing physician. Patient Condition at Discharge: Good Plan - Discharge Summary Discharge Rx Participant: Yes New Discharge Prescriptions: New Ticagrelor [Brilinta] 90 mg PO BID #60 tab Aspirin 81 mg PO DAILY chew Losartan [Cozaar] 50 mg PO HS #30 tab Atorvastatin [Lipitor] 80 mg PO HS #30 tab Metoprolol Tartrate [Lopressor] 50 mg PO DAILY #30 tab Metoprolol Tartrate [Lopressor] 12.5 mg PO HS #30 tab Nitroglycerin Sl Tabs [Nitrostat] 0.4 mg SUBLINGUAL Q5M PRN #25 tab PRN Reason: Chest Pain Continue Insulin Aspart (For Pump) [NovoLOG (For Pump)] 0.01 unit SQ-PUMP CONTINUOUS Discharge Medication List Insulin Aspart (For Pump) [NovoLOG (For Pump)] 0.01 unit SQ-PUMP CONTINUOUS 01/27/19 [History] Ticagrelor [Brilinta] 90 mg PO BID #60 tab 01/29/19 [Rx] Aspirin 81 mg PO DAILY chew 01/30/19 [Rx] Atorvastatin [Lipitor] 80 mg PO HS #30 tab 01/30/19 [Rx] Losartan [Cozaar] 50 mg PO HS #30 tab 01/30/19 [Rx] Metoprolol Tartrate [Lopressor] 12.5 mg PO HS #30 tab 01/30/19 [Rx] Metoprolol Tartrate [Lopressor] 50 mg PO DAILY #30 tab 01/30/19 [Rx] Nitroglycerin Sl Tabs [Nitrostat] 0.4 mg SUBLINGUAL Q5M PRN #25 tab 01/30/19 [Rx] Follow up Appointment(s)/Referral(s): Nathaniel Spicer MD [STAFF PHYSICIAN] - 1 Week Alejandrina Fierro MD [Primary Care Provider] - 1 Week Activity/Diet/Wound Care/Special Instructions: IS for home Discharge Disposition: HOME SELF-CARE
== END 2019-01-30 13:22 | disposition home or self-care (01) | DRG 247 ==
LOC: EC 13:02 → 2SICU 13:45
PROVIDERS: ADMIT Family Medicine; ATTEND Family Medicine
PROC: 027136Z Dilation of Coronary Artery, Two Arteries with Three Drug-eluting Intraluminal Devices, Percutaneous Approach (ICD-10-PCS; principal; 2019-01-27 13:20)
PROC: 4A023N7 Measurement of Cardiac Sampling and Pressure, Left Heart, Percutaneous Approach (ICD-10-PCS; 2019-01-27 13:20)
PROC: B2111ZZ Fluoroscopy of Multiple Coronary Arteries using Low Osmolar Contrast (ICD-10-PCS; 2019-01-27 13:20)
DX: I21.09 ST elevation (STEMI) myocardial infarction involving other coronary artery of anterior wall (principal); E10.649 Type 1 diabetes mellitus with hypoglycemia without coma; I27.20 Pulmonary hypertension, unspecified; I08.1 Rheumatic disorders of both mitral and tricuspid valves; I11.9 Hypertensive heart disease without heart failure; I45.4 Nonspecific intraventricular block; I44.7 Left bundle-branch block, unspecified; I25.10 Atherosclerotic heart disease of native coronary artery without angina pectoris; J45.20 Mild intermittent asthma, uncomplicated; Z79.4 Long term (current) use of insulin; Z96.41 Presence of insulin pump (external) (internal)
CPT/HCPCS: 36415; 80048; 80053; 83690; 83735; 83880; 84484; 85025; 85379; 85610; 85730; 93005; 93306; 93458; 96374; 96375; 99291; C1874

== ENCOUNTER 2021-05-18 11:36 | Emergency (ER) | payer BC ==
[2021-05-18 11:41] VITALS: BP 117/73; RESP 18; TEMP 98.2
--- NOTE | 2021-05-18 12:37 | ED ---
General Adult HPI - General Chief complaint: Upper Respiratory Infection Stated complaint: Covid+ Time Seen by Provider: 05/18/21 12:21 Source: patient, family, RN notes reviewed, old records reviewed Mode of arrival: ambulatory Limitations: no limitations - History of Present Illness Initial comments: 55-year-old male presenting with cough, congestion, patient tested positive for coronavirus as an outpatient. He had not been previously vaccinated. He denies dyspnea. He's had fever chills myalgias. No difficulty breathing. - Related Data Home Medications Medication Instructions Recorded Confirmed Insulin Aspart (For Pump) [NovoLOG 0.01 unit SQ-PUMP CONTINUOUS 01/27/19 01/27/19 (For Pump)] Previous Rx's Medication Instructions Recorded Ticagrelor [Brilinta] 90 mg PO BID #60 tab 01/29/19 Aspirin 81 mg PO DAILY chew 01/30/19 Atorvastatin [Lipitor] 80 mg PO HS #30 tab 01/30/19 Losartan [Cozaar] 50 mg PO HS #30 tab 01/30/19 Metoprolol Tartrate [Lopressor] 12.5 mg PO HS #30 tab 01/30/19 Metoprolol Tartrate [Lopressor] 50 mg PO DAILY #30 tab 01/30/19 Nitroglycerin Sl Tabs [Nitrostat] 0.4 mg SUBLINGUAL Q5M PRN #25 tab 01/30/19 Allergies Allergy/AdvReac Type Severity Reaction Status Date / Time No Known Allergies Allergy Verified 05/18/21 11:41 Review of Systems ROS Statement: Those systems with pertinent positive or pertinent negative responses have been documented in the HPI. ROS Other: All systems not noted in ROS Statement are negative. Past Medical History Past Medical History: Asthma, Diabetes Mellitus History of Any Multi-Drug Resistant Organisms: None Reported Additional Past Surgical History / Comment(s): eye surgery Past Psychological History: No Psychological Hx Reported Smoking Status: Never smoker Past Alcohol Use History: None Reported Past Drug Use History: None Reported - Past Family History Father Additional Family Medical History / Comment(s): Patient does not know anything about his father. Mother Additional Family Medical History / Comment(s): Mother is alive with no major medical problems. Patient has 1 brother and sisters with no major medical problems. General Exam Limitations: no limitations General appearance: alert, in no apparent distress Head exam: Present: atraumatic, normocephalic Eye exam: Present: normal appearance, PERRL ENT exam: Present: normal exam Neck exam: Present: normal inspection. Absent: tenderness, meningismus Respiratory exam: Present: normal lung sounds bilaterally. Absent: respiratory distress, wheezes Cardiovascular Exam: Present: regular rate, normal rhythm GI/Abdominal exam: Present: soft. Absent: distended, tenderness, guarding Extremities exam: Present: normal inspection, normal capillary refill. Absent: pedal edema Neurological exam: Present: alert, oriented X3, CN II-XII intact. Absent: motor sensory deficit Psychiatric exam: Present: normal affect, normal mood Skin exam: Present: warm, dry, intact. Absent: cyanosis, diaphoretic, erythema Course Vital Signs 05/18/21 05/18/21 11:37 13:29 Temperature 98.2 F Pulse Rate 81 67 Respiratory 18 18 Rate Blood Pressure 117/73 O2 Sat by Pulse 100 96 Oximetry Medical Decision Making - Medical Decision Making 55-year-old male with outpatient test for coronavirus. Patient does meet for monoclonal antibody infusion. He is not vaccinated and has history of coronary artery disease. He will be transfused in the emergency department. He is given strict return parameters. Currently he has no respiratory issues and is on room air with normal oxygenation. Disposition Clinical Impression: COVID-19 Disposition: HOME SELF-CARE Condition: Fair Instructions (If sedation given, give patient instructions): Coronavirus Disease 2019 (COVID-19) Is patient prescribed a controlled substance at d/c from ED?: No Referrals: Alejandrina Fierro MD [Primary Care Provider] - 1-2 days Time of Disposition: 14:00
[2021-05-18 13:29] VITALS: PULSE 67
[2021-05-18] MEDS ORDERED: SODIUM CHLORIDE 0.9% 50 ML IVPB ONE (13:30)
[2021-05-18] MEDS ORDERED: BAMLANIVIMAB (EUA) 700 MG, ETESEVIMAB (EUA) 1,400 MG in SODIUM CHLORIDE 0.9% 100 ML IVPB ONE (13:45)
== END 2021-05-18 14:47 | disposition home or self-care (01) ==
LOC: EC 11:36
DX: U07.1 COVID-19 (principal); E11.9 Type 2 diabetes mellitus without complications; J45.909 Unspecified asthma, uncomplicated; Z79.82 Long term (current) use of aspirin; Z79.4 Long term (current) use of insulin
CPT/HCPCS: 99283; M0245

== ENCOUNTER 2021-08-31 11:01 | Inpatient (IN) | payer BC ==
[2021-08-31] MEDS ORDERED: ASPIRIN 81 MG PO STA (11:16)
[2021-08-31] MEDS ORDERED: SODIUM CHLORIDE 0.9% 1,000 ML IV ONE ×2 (11:16→12:12)
[2021-08-31] MEDS ORDERED: ONDANSETRON 4 MG/2 ML VIAL IVP STA (11:17)
[2021-08-31 11:25] LABS: Glucose,Whole Blood 348 mg/dL (75-99)
--- NOTE | 2021-08-31 11:37 | ED ---
Chest Pain HPI - General Chief Complaint: Chest Pain Stated Complaint: Chest Pain Time Seen by Provider: 08/31/21 11:08 Source: patient, RN notes reviewed Mode of arrival: wheelchair Limitations: no limitations - History of Present Illness Initial Comments: 55-year-old male presents emergency Department with chief complaint of chest pain, feeling well. Patient states he woke up this morning felt that his blood sugar was low CT done the shower drank some coffee. Patient states that he woke up sweaty. He started having increasing nausea and developed chest pain. Patient states he did not check his blood sugar this morning he states he is a known diabetic with an insulin pump. Patient states that he had an [facility] with stent placement in 2019. Patient has no abdominal pain states is more feels weak, upset stomach. Patient denies any sick contacts no recent cough or cold- like symptoms. - Related Data Home Medications Medication Instructions Recorded Confirmed Insulin Aspart (For Pump) [NovoLOG 0.01 unit SQ-PUMP CONTINUOUS 01/27/19 08/31/21 (For Pump)] Metoprolol Tartrate [Lopressor] 25 mg PO BID 05/18/21 08/31/21 Losartan [Cozaar] 50 mg PO DAILY 08/31/21 08/31/21 Previous Rx's Medication Instructions Recorded Aspirin 81 mg PO DAILY chew 01/30/19 Atorvastatin [Lipitor] 80 mg PO HS #30 tab 01/30/19 Nitroglycerin Sl Tabs [Nitrostat] 0.4 mg SUBLINGUAL Q5M PRN #25 tab 01/30/19 Allergies Allergy/AdvReac Type Severity Reaction Status Date / Time No Known Allergies Allergy Verified 08/31/21 12:25 Review of Systems ROS Statement: Those systems with pertinent positive or pertinent negative responses have been documented in the HPI. ROS Other: All systems not noted in ROS Statement are negative. EKG Findings - EKG Comments: EKG Findings:: EKG performed at 11:09 sinus rhythm with a rate of 69 SD 147 QRS 90 QT/QTC 439/447 Past Medical History Past Medical History: Asthma, Diabetes Mellitus, Hyperlipidemia, Myocardial Infarction ([facility]) History of Any Multi-Drug Resistant Organisms: None Reported Past Surgical History: Heart Catheterization, Heart Catheterization With Stent Additional Past Surgical History / Comment(s): eye surgery Past Psychological History: No Psychological Hx Reported Smoking Status: Never smoker Past Alcohol Use History: None Reported Past Drug Use History: None Reported - Past Family History Father Additional Family Medical History / Comment(s): Patient does not know anything about his father. Mother Additional Family Medical History / Comment(s): Mother is alive with no major medical problems. Patient has 1 brother and sisters with no major medical problems. General Exam Limitations: no limitations General appearance: alert, in no apparent distress Head exam: Present: atraumatic, normocephalic, normal inspection Eye exam: Present: normal appearance, PERRL, EOMI. Absent: scleral icterus, conjunctival injection, periorbital swelling ENT exam: Present: normal exam, normal oropharynx, mucous membranes moist Neck exam: Present: normal inspection. Absent: tenderness, meningismus, lymphadenopathy Respiratory exam: Present: normal lung sounds bilaterally. Absent: respiratory distress, wheezes, rales, rhonchi, stridor Cardiovascular Exam: Present: regular rate, normal rhythm, normal heart sounds. Absent: systolic murmur, diastolic murmur, rubs, gallop, clicks GI/Abdominal exam: Present: soft, normal bowel sounds. Absent: distended, tenderness, guarding, rebound, rigid Back exam: Absent: CVA tenderness (R), CVA tenderness (L) Neurological exam: Present: alert, oriented X3 Skin exam: Present: warm, dry, intact, normal color. Absent: rash Course Vital Signs 08/31/21 08/31/21 08/31/21 11:04 11:13 13:23 Temperature 97.5 F L Pulse Rate 71 92 Pulse Rate [ 78 [employer] C[employer] ] Respiratory 22 16 Rate Blood Pressure 85/52 95/56 O2 Sat by Pulse 99 97 Oximetry Chest Pain MDM - MDM 55-year-old male presents from for chest pain. Initially thought it Was benign. Patient found to have hyperglycemia with lactic acidosis most likely related to 4 control, dehydration. Patient was given 2 L bolus. Patient has not signs of infection. Patient does have significant cardiac history will be admitted for cardiac rule out, further close monitoring, fluid hydration. Disposition Clinical Impression: Chest pain, Hyperglycemia, Dehydration Disposition: ADMITTED IP TO THIS HOSP Referrals: Alejandrina Fierro MD [Primary Care Provider] - 1-2 days Time of Disposition: 15:23
[2021-08-31 11:49] LABS: Basophils # (A) 0.1 k/uL (0-0.2); Basophils % (A) 1 %; Eosinophils % (A) 0 %; HCT 45.8 % (39.0-53.0); HGB 15.1 gm/dL (13.0-17.5); Lymphocytes # (A) 2.7 k/uL (1.0-4.8); Lymphocytes % (A) 26 %; MCH 30.1 pg (25.0-35.0); MCHC 32.9 g/dL (31.0-37.0); MCV 91.5 fL (80.0-100.0); Mean Platelet Volume 7.1; Monocytes # (A) 0.4 k/uL (0-1.0); Monocytes % (A) 4 %; Neutrophils # (A) 7.1 k/uL (1.3-7.7); Neutrophils % (A) 68 %; Platelet Count 315 k/uL (150-450); RBC 5.01 m/uL (4.30-5.90); RDW 13.2 % (11.5-15.5); WBC 10.3 k/uL (3.8-10.6)
--- NOTE | 2021-08-31 11:54 | XR ---
EXAMINATION TYPE: XR chest 2V DATE OF EXAM: 08/31/2021 COMPARISON: NONE HISTORY: Shortness of breath TECHNIQUE: Frontal and lateral views of the chest are obtained. FINDINGS: Scattered senescent parenchymal changes noted. Hyperinflation compatible with COPD. No evidence for infiltrate. No evidence for atelectasis. Heart size is stable. Mediastinal structures are stable and grossly unremarkable. No evidence for hilar prominence. Degenerative changes dorsal spine. IMPRESSION: 1. No evidence for acute pulmonary disease.
[2021-08-31 12:01] LABS: ALT 34 U/L (4-49); AST 34 U/L (17-59); African American GFR (CKD) >90 (>60 ml/min/1.73 sqM); Alkaline Phosphatase 170 U/L (38-126); Anion Gap 14 mmol/L; Blood Urea Nitrogen 26 mg/dL (9-20); Calcium 9.3 mg/dL (8.4-10.2); Carbon Dioxide 21 mmol/L (22-30); Chloride 101 mmol/L (98-107); Glucose 350 mg/dL (74-99); Lipase 63 U/L (23-300); Magnesium 1.7 mg/dL (1.6-2.3); Non-African American GFR(CKD) 81 (>60 ml/min/1.73 sqM); Potassium 4.3 mmol/L (3.5-5.1); Sodium 136 mmol/L (137-145); Total Bilirubin 0.8 mg/dL (0.2-1.3); Total Protein 6.9 g/dL (6.3-8.2)
[2021-08-31 12:04] LABS: INR 0.9 (<1.2); Prothrombin Time 10.3 sec (9.0-12.0)
[2021-08-31 12:08] LABS: Partial Thromboplastin Time 20.1 sec (22.0-30.0)
[2021-08-31] MEDS ORDERED: METOCLOPRAMIDE 5 MG/ML 2 ML VIAL IVP STA (13:08)
[2021-08-31] MEDS ORDERED: diphenhydrAMINE 50 MG/ML 1 ML VIAL IVP STA (13:08)
[2021-08-31 15:09] LABS: Appearance,Urine Clear (Clear); Bilirubin,Urine Negative (Negative); Blood,Urine Negative (Negative); Color,Urine Yellow; Glucose,Urine (UA) 4+ (Negative); Leukocyte Esterase,Urine Negative (Negative); Nitrite,Urine Negative (Negative); PH, Urine 5.5 (5.0-8.0); Protein,Urine Negative (Negative); Specific Gravity,Urine 1.025 (1.001-1.035); Urobilinogen,Urine <2.0 mg/dL (<2.0)
[2021-08-31 15:12] LABS: Ketones,Urine 3+ (Negative)
[2021-08-31] MEDS ORDERED: NITROGLYCERIN SL TABS 0.4 MG TAB SUBLINGUAL PRN ×2 (15:23→20:54)
[2021-08-31 18:08] LABS: Glucose,Whole Blood 340 mg/dL (75-99)
[2021-08-31] MEDS ORDERED: HEPARIN SODIUM 1,000 UN/ML (10ML VL) IV ONE (18:22)
[2021-08-31] MEDS ORDERED: HEPARIN SODIUM 1,000 UN/ML (10ML VL) IV PRN (18:22)
[2021-08-31 18:53] LABS: Basophils % (A) 0 %; Eosinophils % (A) 0 %; HCT 42.1 % (39.0-53.0); HGB 13.2 gm/dL (13.0-17.5); Lymphocytes # (A) 1.6 k/uL (1.0-4.8); Lymphocytes % (A) 13 %; MCH 29.2 pg (25.0-35.0); MCHC 31.4 g/dL (31.0-37.0); MCV 92.9 fL (80.0-100.0); Mean Platelet Volume 6.9; Monocytes # (A) 0.3 k/uL (0-1.0); Monocytes % (A) 3 %; Neutrophils # (A) 10.4 k/uL (1.3-7.7); Neutrophils % (A) 83 %; Platelet Count 263 k/uL (150-450); RBC 4.53 m/uL (4.30-5.90); RDW 13.3 % (11.5-15.5); WBC 12.5 k/uL (3.8-10.6)
[2021-08-31 19:16] LABS: Partial Thromboplastin Time 22.6 sec (22.0-30.0); Prothrombin Time 10.7 sec (9.0-12.0)
[2021-08-31] MEDS: SODIUM CHLORIDE 0.9% 1,000 ML IV SCH (19:48)
[2021-08-31] MEDS: HEPARIN SOD,PORK IN 0.45% NACL 25,000 UNIT in 0.45% NACL 1 250ML.BAG IV SCH (19:51)
[2021-08-31 20:51] LABS: Glucose,Whole Blood 426 mg/dL (75-99)
[2021-08-31] MEDS ORDERED: Insulin Aspart (For Pump) 100 UNIT/ML VIAL SQ-PUMP SCH (21:00)
[2021-08-31] MEDS: METOPROLOL TARTRATE 25 MG TAB PO SCH (21:33)
[2021-08-31] MEDS: ATORVASTATIN 80 MG TAB PO SCH (21:33)
[2021-08-31] MEDS: INSULIN ASPART (NovoLOG) 100 UNIT/ML VIAL SQ SCH (21:33)
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
[2021-09-01] MEDS ORDERED: INSULIN PUMP BASAL RATES 1 EACH MISC MISCELLANE PRN (00:58)
[2021-09-01] MEDS ORDERED: INSPUCOR MISCELLANE PRN (00:58)
[2021-09-01] MEDS ORDERED: INSULIN ASPART (NovoLOG) 100 UNIT/ML VIAL SQ PRN (00:58)
[2021-09-01 02:21] LABS: Glucose,Whole Blood 186 mg/dL (75-99)
[2021-09-01] MEDS: SODIUM CHLORIDE 0.9% 1,000 ML IV SCH ×4 (03:18→23:57)
[2021-09-01 06:19] LABS: Glucose,Whole Blood 113 mg/dL (75-99)
[2021-09-01] MEDS: INSULIN ASPART (NovoLOG) 100 UNIT/ML VIAL SQ SCH ×7 (06:38→21:16)
[2021-09-01] MEDS: INSULIN PUMP MEAL BOLUS 1 UNIT MISC MISCELLANE SCH ×5 (06:38→23:06)
[2021-09-01] MEDS ORDERED: ALPRAZolam 0.5 MG TAB PO PRN (08:28)
[2021-09-01] MEDS ORDERED: ALPRAZolam 0.25 MG TAB PO PRN (08:28)
[2021-09-01] MEDS: METOPROLOL TARTRATE 25 MG TAB PO SCH ×2 (08:42→21:44)
[2021-09-01] MEDS: FAMOTIDINE 20 MG TAB PO SCH (08:42)
[2021-09-01] MEDS: LOSARTAN 50 MG TAB PO SCH (08:42)
[2021-09-01] MEDS ORDERED: ASPIRIN 81 MG PO SCH (09:00)
[2021-09-01] MEDS ORDERED: ASPIRIN 325 MG TAB PO SCH (09:00)
--- NOTE | 2021-09-01 09:34 | P.PN ---
Subjective Progress Note Date: 09/01/21 HISTORY OF PRESENT ILLNESS -year-old male one of Dr. Fierro's patient with past medical history of CAD, type 2 diabetes on insulin pump, history of hypertension and hyperlipidemia who had 2019 acute STEMI ended up going for 2 drug-eluting stent placement in the LAD successfully and has done very well. Patient ejection fraction at the time was 35-40 tile and continue to follow-up with cardiology regular basis. apparently patient had returned to his regular activity has been doing well until around 10:00 in the morning when he felt not right developed to have significant sweating with chest tightness discomfort with significant shortness of breath nausea vomiting symptoms ended up leading to his left arm and felt awful at some point. Patient ended up asking family member to drive him to the emergency department at [facility] where was seen and evaluated at the time his troponin was elevated at 25.0 with lactic acid mildly elevated as well at 2.0 blood sugar was quite bit high running between 3:15 426. His EKG at the time showed slight ST depression in the lateral lead and partially the inferior leads. Patient was heparinize at this point diagnosed with possible non-ST [place] will be admitted to the [facility] cardiology where on alert for the current findi ng patient probably will going for heart cath by tomorrow. In the meanwhile his blood sugar started coming down slightly patient is chest pain-free after nitroglycerin. 09/01: Patient has been seen by cardiology and started on aspirin, Lipitor, heparin drip, schedule patient for cardiac catheterization today. He is on insulin pump which will be placed on hold for now and started on insulin scale every 4 hours. Insulin pump may be resumed after procedure. Blood work for today is pending. Echocardiogram has been obtained and report is pending Anticipate possible discharge home by tomorrow. REVIEW OF SYSTEMS Constitutional: No fever, no chills, no night sweats. No weight change. No weakness, fatigue or lethargy. No daytime sleepiness. EENT: No headache. No nasal drainage or congestion. No epistaxis. No sore throat. Lungs: mild shortness of breath, cough, no sputum production. No wheezing. Cardiovascular: positive chest pain and angina, no lower extremity edema. No palpitations. No paroxysmal nocturnal dyspnea. No orthopnea. No lightheadedness or dizziness. No syncopal episodes. Abdominal: No abdominal pain. No nausea, vomiting. No diarrhea. No constipation. No bloody or tarry stools.. No loss of appetite. Genitourinary: No dysuria, increased frequency, urgency. No urinary retention. Musculoskeletal: No myalgias. No muscle weakness, no gait dysfunction, no frequent falls. No back pain. No neck pain. Integumentary: No wounds, no lesions. No rash or pruritus. No unusual bruising. No change in hair or nails. Neurologic: No aphasia. No facial droop. No change in mentation. No head injury. No headache. No paralysis. No paresthesia. Psychiatric: No depression. No anxiety. No mood swings. Endocrine: No abnormal blood sugars. No weight change. No excessive sweating or thirst. No cold intolerance. PHYSICAL EXAMINATION Gen: This is well-developed 55-year-old male laying in bed in no acute respiratory distress. HEENT: Head is atraumatic, normocephalic. Pupils equal, round. Sclerae is anic teric. NECK: Supple. No JVD. No lymphadenopathy. No thyromegaly. LUNGS: Clear to auscultation. No wheezes or rhonchi. No intercostal retractions. HEART: Regular rate and rhythm. No murmur. ABDOMEN: Soft. Bowel sounds are present. No masses. No tenderness. EXTREMITIES: No pedal edema. No calf tenderness. NEUROLOGICAL: Patient is awake, alert and oriented x3. Cranial nerves 2 through 12 are grossly intact. ASSESSMENT AND PLAN 1.non-ST [place]: With significantly elevated troponin at this point, patient was heparinize will be admitted to the hospital be seen cardiology consult appreciated, his last echo after his angioplasty back in 01/27/2019 was still running around 35 percentile only hopefully this time his heart function has improved some. 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 Shelton. 2 atherosclerotic heart disease post [place] with 2 stent placement in the LAD patient has been faithful with his medical management. 3 type 2 diabetes: On insulin pump resume his insulin at this point continue Accu-Chek with sliding scales coverage while insulin 1 pump is on hold for procedure. 4 hypertension: Remain on losartan 50 mg a day and metoprolol titrate 25 mg twice a day. 5 hyperlipidemia: Remain on atorvastatin 80 mg daily. 6 elevated lactic acid: Most likely from his acute [place] at this point continue conservative management continue to treat his nonketotic hyperglycemia repeat l actic acid the next 24 hours. 7 ischemic cardiomyopathy: Has been on medical management did not require up till now any diuretics ejection fraction to be calculated by doing an echo in the morning. 8 GI prophylaxis: Patient be on Pepcid 20 mg daily. 9 DVT prophylaxis: Early mobilization and knee-high RICK hose, still on heparin drip at this point. CODE STATUS: Full code. DISCHARGE PLAN Home Impression and plan of care have been directed as dictated by the signing physician. Patricia Nolen nurse practitioner acting as scribe for signing physician. Objective - Vital Signs Vital signs: Vital Signs Temp 98.2 F 09/01/21 04:00 Pulse 77 09/01/21 04:00 Resp 16 09/01/21 04:00 BP 104/58 09/01/21 04:00 Pulse Ox 96 09/01/21 04:00 Intake & Output 08/31/21 09/01/21 09/01/21 18:59 06:59 18:59 Intake Total 1288.944 Output Total 380 Balance -380 1288.944 Weight 73.936 kg Intake: Intake, IV Titration 1048.944 Amount Heparin Sod,Pork in 0.45% 48.944 NaCl 25,000 unit In 0.45 % NaCl 1 250ml.bag @ 12 UNITS/KG/HR 8.872 mls/hr IV .Q24H JACQUELYN Rx#: [id number] Sodium Chloride 0.9% 1, 1000 000 ml @ 100 mls/hr IV . Q10H JACQUELYN Rx#:[id number] Oral 240 Output: Post Void Residual 380 Other: # Voids 2 - Labs CBC & Chem 7: 08/31/21 18:36 08/31/21 11:33 Labs: Abnormal Lab Results - Last 24 Hours (Table) 08/31/21 08/31/21 08/31/21 Range/Units 11:23 11:33 11:33 WBC (3.8-10.6) k/uL Neutrophils # (1.3-7.7) k/uL APTT 20.1 L (22.0-30.0) sec Sodium 136 L (137-145) mmol/L Carbon Dioxide 21 L (22-30) mmol/L BUN 26 H (9-20) mg/dL Glucose 350 H (74-99) mg/dL POC Glucose (mg/dL) 348 H (75-99) mg/dL Plasma Lactic Acid Bala (0.7-2.0) mmol/L Alkaline Phosphatase 170 H (38-126) U/L Troponin I (0.000-0.034) ng/mL Urine Glucose (UA) (Negative) Urine Ketones (Negative) 08/31/21 08/31/21 08/31/21 Range/Units 11:33 12:17 14:24 WBC (3.8-10.6) k/uL Neutrophils # (1.3-7.7) k/uL APTT (22.0-30.0) sec Sodium (137-145) mmol/L Carbon Dioxide (22-30) mmol/L BUN (9-20) mg/dL Glucose (74-99) mg/dL POC Glucose (mg/dL) (75-99) mg/dL Plasma Lactic Acid Bala 4.9 H* 3.8 H* (0.7-2.0) mmol/L Alkaline Phosphatase (38-126) U/L Troponin I (0.000-0.034) ng/mL Urine Glucose (UA) 4+ H (Negative) Urine Ketones 3+ H (Negative) 08/31/21 08/31/21 08/31/21 Range/Units 16:40 18:02 18:07 WBC (3.8-10.6) k/uL Neutrophils # (1.3-7.7) k/uL APTT (22.0-30.0) sec Sodium (137-145) mmol/L Carbon Dioxide (22-30) mmol/L BUN (9-20) mg/dL Glucose (74-99) mg/dL POC Glucose (mg/dL) 340 H (75-99) mg/dL Plasma Lactic Acid Bala (0.7-2.0) mmol/L Alkaline Phosphatase (38-126) U/L Troponin I 16.300 H* 25.600 H* (0.000-0.034) ng/mL Urine Glucose (UA) (Negative) Urine Ketones (Negative) 08/31/21 08/31/21 09/01/21 Range/Units 18:36 20:50 00:41 WBC 12.5 H (3.8-10.6) k/uL Neutrophils # 10.4 H (1.3-7.7) k/uL APTT 82.0 H (22.0-30.0) sec Sodium (137-145) mmol/L Carbon Dioxide (22-30) mmol/L BUN (9-20) mg/dL Glucose (74-99) mg/dL POC Glucose (mg/dL) 426 H (75-99) mg/dL Plasma Lactic Acid Bala (0.7-2.0) mmol/L Alkaline Phosphatase (38-126) U/L Troponin I (0.000-0.034) ng/mL Urine Glucose (UA) (Negative) Urine Ketones (Negative) 09/01/21 09/01/21 Range/Units 02:20 06:17 WBC (3.8-10.6) k/uL Neutrophils # (1.3-7.7) k/uL APTT (22.0-30.0) sec Sodium (137-145) mmol/L Carbon Dioxide (22-30) mmol/L BUN (9-20) mg/dL Glucose (74-99) mg/dL POC Glucose (mg/dL) 186 H 113 H (75-99) mg/dL Plasma Lactic Acid Bala (0.7-2.0) mmol/L Alkaline Phosphatase (38-126) U/L Troponin I (0.000-0.034) ng/mL Urine Glucose (UA) (Negative) Urine Ketones (Negative)
[2021-09-01 09:37] LABS: Basophils % (A) 1 %; Eosinophils # (A) 0.2 k/uL (0-0.7); Eosinophils % (A) 3 %; HCT 38.6 % (39.0-53.0); HGB 12.8 gm/dL (13.0-17.5); Lymphocytes # (A) 3.4 k/uL (1.0-4.8); Lymphocytes % (A) 38 %; MCH 30.4 pg (25.0-35.0); MCHC 33.2 g/dL (31.0-37.0); MCV 91.4 fL (80.0-100.0); Mean Platelet Volume 6.8; Monocytes # (A) 0.4 k/uL (0-1.0); Monocytes % (A) 4 %; Neutrophils # (A) 4.8 k/uL (1.3-7.7); Neutrophils % (A) 53 %; Platelet Count 255 k/uL (150-450); RBC 4.23 m/uL (4.30-5.90); RDW 13.4 % (11.5-15.5)
[2021-09-01 10:10] LABS: Partial Thromboplastin Time 62.5 sec (22.0-30.0); Prothrombin Time 10.9 sec (9.0-12.0)
[2021-09-01 10:23] LABS: Glucose,Whole Blood 122 mg/dL (75-99)
[2021-09-01 10:24] LABS: ALT 31 U/L (4-49); AST 70 U/L (17-59); African American GFR (CKD) >90 (>60 ml/min/1.73 sqM); Albumin 2.9 g/dL (3.5-5.0); Alkaline Phosphatase 114 U/L (38-126); Anion Gap 3 mmol/L; Blood Urea Nitrogen 19 mg/dL (9-20); Calcium 7.9 mg/dL (8.4-10.2); Carbon Dioxide 26 mmol/L (22-30); Chloride 110 mmol/L (98-107); Glucose 61 mg/dL (74-99); Non-African American GFR(CKD) >90 (>60 ml/min/1.73 sqM); Potassium 3.6 mmol/L (3.5-5.1); Sodium 139 mmol/L (137-145); Total Bilirubin 0.7 mg/dL (0.2-1.3); Total Protein 5.7 g/dL (6.3-8.2)
--- NOTE | 2021-09-01 10:37 | P.CRDCN ---
History of Present Illness History of present illness: HISTORY OF PRESENTING ILLNESS This is a pleasant 55-year-old male past medical history significant for type 1 diabetes, hypertension, dyslipidemia, coronary artery disease status post PCI mid LAD and mid circumflex in 2019. He follows in the office with Dr. Spicer. We have been asked to see in consultation for NSTEMI. Patient presents emergency department with sudden onset chest pain yesterday. He describes as a pressure. With radiation to his left arm and back. Pain started at 11AM yesterday and continued until 3:30PM. No specific alleviated factors. Was aggravated by activity. He had associated diaphoresis and shortness of breath. He first thought it was hypoglycemia, but his chest pain did not resolve and presented to the emergency department. Initial troponin negative-- increased to 25.6. Patient started on IV heparin. His chest pain has resolved. DIAGNOSTICS EKG reveals sinus rhythm, heart rate 69, ST depression noted in leads II, aVF, I, aVL, V4-V6. Telemetry tracings this morning revealed sinus rhythm heart rate 6070s. Overnight patient was sinus tachycardia with 100-115. Chest xray no acute cardiopulmonary process.. Laboratory reviewed, initial troponin negative, 16.3-->25.6, WBC 9, hemoglobin 12.8, platelets 255, sodium 139, potassium 3.6, BUN 19, serum creatinine 0.9, magnesium 1.7 Current home cardiac medications include metoprolol titrate 25 mg twice a day, losartan 50 mg daily, atorvastatin 80 mg nightly, aspirin 81 mg daily, PRN nitro Echocardiogram in the office in 08/2020 revealed EF of 50%, mild mitral regurgitation REVIEW OF SYSTEMS At the time of my exam: CONSTITUTIONAL: Denies fever or chills. CARDIOVASCULAR: Denies chest pain, shortness of breath, orthopnea, PND or palpitations. RESPIRATORY: Denies cough. GASTROINTESTINAL: Denies abdominal pain, diarrhea, constipation, nausea or vomiting. MUSCULOSKELETAL: Denies myalgias. NEUROLOGIC: Denies numbness, tingling, headacbe or weakness. ENDOCRINE: Denies fatigue, weight change, polydipsia or polyurina. GENITOURINARY: Denies burning, hematuria or urgency with micturation. HEMATOLOGIC: Denies history of anemia or bleeding. PHYSICAL EXAMINATION Blood pressure 129/69, HR 73, afebrile, saturations 97% on room air CONSTITUTIONAL: No apparent distress. HEENT: Head is normocephalic. Pupils are equal, round. Sclerae anicteric. Mucous membranes of the mouth are moist. No JVD. No carotid bruit. CHEST EXAMINATION: Lungs are clear to auscultation. No chest wall tenderness is noted on palpation or with deep breathing. HEART EXAMINATION: Regular rate and rhythm. S1, S2 heard. No murmurs, gallops or rub. ABDOMEN: Soft, nontender. Positive bowel sounds. EXTREMITIES: 2+ peripheral pulses, no lower extremity edema and no calf tenderness. NEUROLOGIC EXAMINATION: Patient is awake, alert and oriented x3. ASSESSMENT NSTEMI Coronary artery disease status post PCI mid LAD and mid circumflex in 2019. Type 1 diabetes Hypertension Dyslipidemia PLAN Recommend cardiac catheterization, patient is agreeable. Plan for cardiac catheterization with Dr. Spicer on 09/02/21, NPO after midnight Obtain 2D echocardiogram and doppler study to assess cardiac structure and function. Continue IV heparin Continue aspirin, statin, losartan, metoprolol tartrate Further recommendations based on clinical course Nurse practitioner note has been reviewed by physician. Signing provider agrees with the documented findings, assessment, and plan of care. Past Medical History Past Medical History: Asthma, Diabetes Mellitus, Hyperlipidemia, Myocardial Infarction ([place]) Last Myocardial Infarction Date:: 2020 History of Any Multi-Drug Resistant Organisms: None Reported Past Surgical History: Heart Catheterization, Heart Catheterization With Stent Additional Past Surgical History / Comment(s): eye surgery Date of Last Stent Placement:: 2020 Past Psychological History: No Psychological Hx Reported Smoking Status: Never smoker Past Alcohol Use History: None Reported Additional Past Alcohol Use History / Comment(s): patient is a lifelong nonsmoker. He denies any illicit drug use, alcohol use. Past Drug Use History: None Reported - Past Family History Father Additional Family Medical History / Comment(s): Patient does not know anything about his father. Mother Additional Family Medical History / Comment(s): Mother is alive with no major medical problems. Patient has 1 brother and sisters with no major medical problems. Medications and Allergies Home Medications Medication Instructions Recorded Confirmed Type Insulin Aspart (For Pump) [NovoLOG 0.01 unit SQ-PUMP CONTINUOUS 01/27/19 08/31/21 History (For Pump)] Aspirin 81 mg PO DAILY chew 01/30/19 08/31/21 Rx Atorvastatin [Lipitor] 80 mg PO HS #30 tab 01/30/19 08/31/21 Rx Nitroglycerin Sl Tabs [Nitrostat] 0.4 mg SUBLINGUAL Q5M PRN #25 tab 01/30/19 08/31/21 Rx Metoprolol Tartrate [Lopressor] 25 mg PO BID 05/18/21 08/31/21 History Losartan [Cozaar] 50 mg PO DAILY 08/31/21 08/31/21 History Allergies Allergy/AdvReac Type Severity Reaction Status Date / Time No Known Allergies Allergy Verified 08/31/21 12:25 Physical Exam Vitals: Vital Signs Temp Pulse Pulse Pulse Resp BP BP 09/01/21 04:00 98.2 F 77 16 104/58 09/01/21 00:00 98.4 F 99 16 104/50 08/31/21 18:50 99.0 F 110 H 18 103/58 08/31/21 17:58 98.3 F 107 H 15 101/64 08/31/21 15:57 101 H 16 105/59 08/31/21 13:23 92 16 95/56 08/31/21 11:13 78 08/31/21 11:04 97.5 F L 71 22 85/52 Pulse Ox 09/01/21 04:00 96 09/01/21 00:00 95 08/31/21 18:50 95 08/31/21 17:58 96 08/31/21 15:57 96 08/31/21 13:23 97 08/31/21 11:13 08/31/21 11:04 99 Intake and Output 08/31/21 09/01/21 09/01/21 22:59 06:59 14:59 Intake Total 240 1048.944 Balance 240 1048.944 Intake: Intake, IV Titration 1048.944 Amount Heparin Sod,Pork in 0.45% 48.944 NaCl 25,000 unit In 0.45 % NaCl 1 250ml.bag @ 12 UNITS/KG/HR 8.872 mls/hr IV .Q24H [facility] Rx#: [id number] Sodium Chloride 0.9% 1, 1000 000 ml @ 100 mls/hr IV . Q10H [facility] Rx#:[id number] Oral 240 0 Other: # Voids 1 2 Weight 73.936 kg Results 09/01/21 09:10 09/01/21 09:10 Cardiac Enzymes 08/31/21 08/31/21 08/31/21 Range/Units 11:33 11:33 16:40 AST 34 (17-59) U/L Troponin I <0.012 16.300 H* (0.000-0.034) ng/mL 08/31/21 Range/Units 18:02 AST (17-59) U/L Troponin I 25.600 H* (0.000-0.034) ng/mL Coagulation 08/31/21 08/31/21 09/01/21 Range/Units 11:33 18:36 00:41 PT 10.3 10.7 (9.0-12.0) sec APTT 20.1 L 22.6 82.0 H (22.0-30.0) sec CBC 08/31/21 08/31/21 Range/Units 11:33 18:36 WBC 10.3 12.5 H (3.8-10.6) k/uL RBC 5.01 4.53 (4.30-5.90) m/uL Hgb 15.1 13.2 (13.0-17.5) gm/dL Hct 45.8 42.1 (39.0-53.0) % Plt Count 315 263 (150-450) k/uL Comprehensive Metabolic Panel 08/31/21 Range/Units 11:33 Sodium 136 L (137-145) mmol/L Potassium 4.3 (3.5-5.1) mmol/L Chloride 101 (98-107) mmol/L Carbon Dioxide 21 L (22-30) mmol/L BUN 26 H (9-20) mg/dL Creatinine 1.04 (0.66-1.25) mg/dL Glucose 350 H (74-99) mg/dL Calcium 9.3 (8.4-10.2) mg/dL AST 34 (17-59) U/L ALT 34 (4-49) U/L Alkaline Phosphatase 170 H (38-126) U/L Total Protein 6.9 (6.3-8.2) g/dL Albumin 4.0 (3.5-5.0) g/dL Current Medications Generic Name Dose Route Start Last Admin Trade Name Freq PRN Reason Stop Dose Admin Aspirin 81 mg 09/01/21 09:00 Aspirin 81 Mg PO DAILY [facility] Atorvastatin Calcium 80 mg 08/31/21 21:00 08/31/21 21:33 Atorvastatin 80 Mg Tab PO 80 mg HS [facility] Administration Famotidine 20 mg 09/01/21 09:00 Famotidine 20 Mg Tab PO DAILY [facility] Heparin Sodium (Porcine) 0 unit 08/31/21 18:22 Heparin Sodium 1,000 Un/Ml (10ml Vl) IV PER PROTOCOL PRN Low PTT Protocol Sodium Chloride 1,000 mls @ 100 mls/hr 08/31/21 15:30 09/01/21 03:18 Saline 0.9% IV Not Given .Q10H [facility] Heparin Sodium/Sodium Chloride 250 mls @ 8.872 mls/hr 08/31/21 18:30 09/01/21 01:22 25,000 unit/ Sodium Chloride IV 10 units/kg/hr .Q24H [facility] 7.394 mls/hr Titration Protocol 12 UNITS/KG/HR Insulin Aspart 0 unit 08/31/21 21:00 09/01/21 06:38 Insulin Aspart (Novolog) 100 Unit/Ml Vial SQ Not Given ACHS [facility] Protocol Insulin Aspart 0 unit 09/01/21 00:58 Insulin Aspart (Novolog) 100 Unit/Ml Vial SQ DAILY PRN Insulin Pump Replacement Losartan Potassium 50 mg 09/01/21 09:00 Losartan 50 Mg Tab PO DAILY [facility] Metoprolol Tartrate 25 mg 08/31/21 21:00 08/31/21 21:33 Metoprolol Tartrate 25 Mg Tab PO 25 mg BID [facility] Administration Miscellaneous Information 1 each 09/01/21 00:58 Insulin Pump Basal Rates 1 Each Misc MISCELLANE Q6HR PRN Blood Sugar - High Protocol Miscellaneous Information 0 unit 09/01/21 07:30 09/01/21 06:38 Insulin Pump Meal Bolus 1 Unit Misc MISCELLANE Not Given A[facility]S [facility] Protocol Miscellaneous Information 0 unit 09/01/21 00:58 Insulin Pump Correction Bolus 1 Unit Misc MISCELLANE ACHS PRN Blood Sugar - High Protocol Nitroglycerin 0.4 mg 08/31/21 20:54 Nitroglycerin Sl Tabs 0.4 Mg Tab SUBLINGUAL Q5M PRN Chest Pain Intake and Output 08/31/21 09/01/21 09/01/21 22:59 06:59 14:59 Intake Total 240 1048.944 Balance 240 1048.944 Intake: Intake, IV Titration 1048.944 Amount Heparin Sod,Pork in 0.45% 48.944 NaCl 25,000 unit In 0.45 % NaCl 1 250ml.bag @ 12 UNITS/KG/HR 8.872 mls/hr IV .Q24H [facility] Rx#: [id number] Sodium Chloride 0.9% 1, 1000 000 ml @ 100 mls/hr IV . Q10H [facility] Rx#:[id number] Oral 240 0 Other: # Voids 1 2 Weight 73.936 kg 08/31/21 18:36 08/31/21 11:33
[2021-09-01 12:09] LABS: Glucose,Whole Blood 163 mg/dL (75-99)
[2021-09-01 14:15] LABS: Glucose,Whole Blood 249 mg/dL (75-99)
--- NOTE | 2021-09-01 14:44 | CA ---
Transthoracic Echo Report Name: Miguel Mendoza Age: 55 Gender: M : 1965 Exam Date: 09/01/2021 08:48 Exam Location: [facility] Ht (in): 64 Wt (lb): 163 Ordering Physician: Vishal Sierra Attending/Referring Phys: [id number], Mariela Barber Tool Sharpener Sushma Garner, STEVENSON Procedure CPT: Indications: Chest Pain Cardiac Hx: Technical Quality: Technically difficult study Contrast 1: Lumason Total Dose (mL): 4 Contrast 2: Total Dose (mL): MEASUREMENTS (Male / Female) Normal Values 2D ECHO LV Diastolic Diameter PLAX 4.3 cm 4.2 - 5.9 / 3.9 - 5.3 cm LV Systolic Diameter PLAX 3.0 cm IVS Diastolic Thickness 1.2 cm 0.6 - 1.0 / 0.6 - 0.9 cm LVPW Diastolic Thickness 1.3 cm 0.6 - 1.0 / 0.6 - 0.9 cm LV Relative Wall Thickness 0.6 RV Internal Dim ED PLAX 2.4 cm LA Volume 34.8 cm??? 18 - 58 / 22 - 52 cm??? M-MODE Aortic Root Diameter MM 2.8 cm LA Systolic Diameter MM 3.7 cm LA Ao Ratio MM 1.3 AV Cusp Separation MM 1.7 cm DOPPLER AV Peak Velocity 165.2 cm/s AV Peak Gradient 10.9 mmHg LVOT Peak Velocity 114.7 cm/s LVOT Peak Gradient 5.3 mmHg MV Area PHT 3.3 cm??? Mitral E Point Velocity 116.3 cm/s Mitral A Point Velocity 91.6 cm/s Mitral E to A Ratio 1.3 MV Deceleration Time 230.7 ms TR Peak Velocity 252.9 cm/s TR Peak Gradient 25.6 mmHg Right Ventricular Systolic Press 30.1 mmHg FINDINGS Left Ventricle Left ventricular cavity size normal. Mildly increased left ventricular wall thickness. Hypokinetic basal antroseptal wall. Left ventricular ejection fraction is estimated at 45 %. Right Ventricle Normal right ventricular size and function. Right ventricular systolic pressure within normal limits. Right Atrium Normal right atrial size. Left Atrium Normal left atrial size. No evidence for an atrial septal defect. Mitral Valve Mild mitral regurgitation. Aortic Valve No aortic valve stenosis or regurgitation. Tricuspid Valve Mild tricuspid regurgitation. Pulmonic Valve No pulmonic regurgitation. Pericardium No pericardial effusion. Aorta Normal size aortic root and proximal ascending aorta. CONCLUSIONS Reduced LV systolic function with basal septal hypokinesis Previewed by: Dr. David Sharma MD (Electronically Signed) Final Date: 01 Sep 2021 14:43
[2021-09-01 15:25] LABS: Chol/HDL Ratio 2.29 Ratio; LDL Cholesterol,Calculated 29.8 mg/dL (0.0-131.0); VLDL Calculation 13.64 mg/dL (5.00-40.00)
[2021-09-01 16:44] LABS: Glucose,Whole Blood 187 mg/dL (75-99)
[2021-09-01 20:22] LABS: Glucose,Whole Blood 111 mg/dL (75-99)
[2021-09-01] MEDS: HEPARIN SOD,PORK IN 0.45% NACL 25,000 UNIT in 0.45% NACL 1 250ML.BAG IV SCH ×2 (20:50→23:57)
[2021-09-01] MEDS: ATORVASTATIN 80 MG TAB PO SCH (21:44)
[2021-09-02] MEDS: INSULIN ASPART (NovoLOG) 100 UNIT/ML VIAL SQ SCH ×8 (02:16→22:00)
[2021-09-02 02:17] LABS: Glucose,Whole Blood 81 mg/dL (75-99)
[2021-09-02 05:39] LABS: Glucose,Whole Blood 119 mg/dL (75-99)
[2021-09-02] MEDS ORDERED: ASPIRIN 325 MG TAB PO ONE (06:00)
[2021-09-02] MEDS: INSULIN PUMP MEAL BOLUS 1 UNIT MISC MISCELLANE SCH ×3 (06:29→20:37)
[2021-09-02] MEDS ORDERED: HEPARIN SODIUM,PORCINE 2,500 UNIT in SODIUM CHLORIDE 0.9% 250 ML IRRIGATION PRN (07:00)
[2021-09-02] MEDS ORDERED: HEPARIN SODIUM,PORCINE 10,000 UNIT in SODIUM CHLORIDE 0.9% 1,000 ML IRRIGATION PRN (07:00)
[2021-09-02] MEDS ORDERED: IV FLUID CONTINUATION 400 ML IV ONE (07:20)
[2021-09-02] MEDS ORDERED: MIDAZOLAM 2 MG/2 ML VIAL IV ONE (07:31)
[2021-09-02] MEDS ORDERED: LIDOCAINE 1% INJ 10MG/ML (5 ML VIAL-PF) SQ ONE (07:32)
[2021-09-02] MEDS ORDERED: VERAPAMIL SYRINGE (5 MG/10 ML) INTRAARTER ONE (07:34)
[2021-09-02] MEDS ORDERED: HEPARIN SODIUM 1,000 UN/ML (10ML VL) IV ONE (07:39)
[2021-09-02] MEDS ORDERED: IOPAMIDOL-370 100ML BTL INJ ONE (07:59)
[2021-09-02] MEDS ORDERED: CLOPIDOGREL 75 MG TAB PO ONE (08:08)
--- NOTE | 2021-09-02 09:38 | CC ---
CARDIAC CATHETERIZATION REPORT DATE OF SERVICE: 09/02/2021 PROCEDURE: Left heart catheterization and coronary angiography. PERFORMED BY: Dr. Damien Spicer. Moderate conscious sedation time was 30 minutes. Patient was administered Versed. Oxygen saturation, hemodynamics and EKG were monitored closely. CLINICAL INFORMATION: Mr. Miguel Mendoza is a 55-year-old gentleman with type 1 diabetes, hypertension, hyperlipidemia and CAD. He presented with an ST-elevation NC in December 2018 and I performed stenting of a totally occluded LAD in the setting of an acute ST-elevation NC and also performed circumflex marginal with excellent result. He has not been compliant with medications or followup. However, he showed up in the hospital with chest pain and had troponin elevation without significant EKG changes. Ejection fraction was about 45% with anterobasal septal hypokinesia. He was advised cardiac catheterization, given his clinical history and episode of chest discomfort and non-ST- elevation NC. PROCEDURE NOTE: Under local anesthesia and strict aseptic precautions, a 6-Luxembourger introducer was placed in the right radial artery. Using a JL3.5 and JR4 catheters I performed coronary angiography, and the same right catheter was used to check LV pressure, but LV gram was not performed. The sheath was taken out and TR band applied as per protocol with saturation in the fingers of the right hand of 97%. The patient tolerated procedure well without complication. Results were discussed with him, but there was no family available. CARDIAC CATHETERIZATION FINDINGS: The left ventricular end-diastolic pressure was 12 mmHg without any gradient across aortic valve. CORONARY ANGIOGRAPHY FINDINGS: LEFT MAIN CORONARY ARTERY: This is a short patent vessel. No significant disease. It immediately bifurcates into LAD and circumflex. LEFT ANTERIOR DESCENDING CORONARY ARTERY: Fair-caliber vessel which was stented before. The stent is there in the mid LAD. Stented segment is widely patent. Beyond the stent, the caliber of the vessel decreases. It gives off two diagonal branches and the LAD itself decreases in caliber, runs all the way to the apex. There is a MISA-3 flow with a brisk flow and no evidence of any angiographic stenosis. The stented segment is widely patent with good flow. All the branches of the LAD are patent. Compared to the previous images, there is no significant change. LEFT POSTERIOR CIRCUMFLEX CORONARY ARTERY: Technically this is a nondominant vessel, gives off two obtuse marginals and then continues in the AV groove. The second obtuse marginal, which is the larger one, was stented. The stented segment is patent. There is no significant disease in circumflex. Good MISA-3 flow is noted. RIGHT CORONARY ARTERY: Technically dominant vessel that gives off the PDA distally. It has no significant disease in the proximal and mid portion. PLV small. PDA is of good caliber. No significant disease. FINAL IMPRESSION: This patient has a right-dominant system, widely patent LAD that was stented in 2019 and widely patent circumflex that was stented in 2019 also. No significant obstructive disease. There is mild diffuse disease in the distal branches of the LAD and diagonal. RCA and PDA are free of significant disease. Circumflex is widely patent with good flow. Filling pressures are normal with no gradient across aortic valve. RECOMMENDATIONS: Findings were discussed with the patient. No family was available. We will continue current medical therapy, including dual antiplatelet therapy, and I will also give him heparin for the next 36 hours. Discussed my thoughts in detail with the patient. Advised him to be compliant with medications and blood sugar control. Patient is on insulin pump. His A1c is not optimal. MMODL / IJN: [id number] /
--- NOTE | 2021-09-02 10:00 | P.PN ---
Subjective Progress Note Date: 09/02/21 HISTORY OF PRESENT ILLNESS -year-old male one of Dr. Fierro's patient with past medical history of CAD, type 2 diabetes on insulin pump, history of hypertension and hyperlipidemia who had 2019 acute STEMI ended up going for 2 drug-eluting stent placement in the LAD successfully and has done very well. Patient ejection fraction at the time was 35-40 tile and continue to follow-up with cardiology regular basis. apparently patient had returned to his regular activity has been doing well until around 10:00 in the morning when he felt not right developed to have significant sweating with chest tightness discomfort with significant shortness of breath nausea vomiting symptoms ended up leading to his left arm and felt awful at some point. Patient ended up asking family member to drive him to the emergency department at [facility] where was seen and evaluated at the time his troponin was elevated at 25.0 with lactic acid mildly elevated as well at 2.0 blood sugar was quite bit high running between 3:15 426. His EKG at the time showed slight ST depression in the lateral lead and partially the inferior leads. Patient was heparinize at this point diagnosed with possible non-ST TX will be admitted to the [facility] cardiology where on alert for the current findi ng patient probably will going for heart cath by tomorrow. In the meanwhile his blood sugar started coming down slightly patient is chest pain-free after nitroglycerin. 09/01: Patient has been seen by cardiology and started on aspirin, Lipitor, heparin drip, schedule patient for cardiac catheterization today. He is on insulin pump which will be placed on hold for now and started on insulin scale every 4 hours. Insulin pump may be resumed after procedure. Blood work for today is pending. Echocardiogram has been obtained and report is pending Anticipate possible discharge home by tomorrow. 09/02: This morning, patient underwent cardiac catheterization with Dr. NATHANIEL Spicer finding no significant obstructive disease, cardiology has placed him on heparin with plans for 24 hour monitoring and possible discharge on Sunday. He denies having any chest pain or shortness of breath, no lightheadedness or dizziness. Patient has been afebrile, heart rate 72, blood pressure 110/58, pulse ox 97% on room air. Capillary blood glucose running between 81 and 187. Patient to be resumed back on insulin pump. Echocardiogram reveals EF of 45%, mild mitral regurgitation, mild tricuspid regurgitation. REVIEW OF SYSTEMS Constitutional: No fever, no chills, no night sweats. No weight change. No weakness, fatigue or lethargy. No daytime sleepiness. EENT: No headache. No nasal drainage or congestion. No epistaxis. No sore throat. Lungs: no shortness of breath, cough, no sputum production. No wheezing. Cardiovascular: no chest pain and angina, no lower extremity edema. No palpitations. No paroxysmal nocturnal dyspnea. No orthopnea. No lightheadedness or dizziness. No syncopal episodes. Abdominal: No abdominal pain. No nausea, vomiting. No diarrhea. No constipation. No bloody or tarry stools.. No loss of appetite. Genitourinary: No dysuria, increased frequency, urgency. No urinary retention. Musculoskeletal: No myalgias. No muscle weakness, no gait dysfunction, no frequent falls. No back pain. No neck pain. Integumentary: No wounds, no lesions. No rash or pruritus. No unusual bruising. No change in hair or nails. Neurologic: No aphasia. No facial droop. No change in mentation. No head injury. No headache. No paralysis. No paresthesia. Psychiatric: No depression. No anxiety. No mood swings. Endocrine: No abnormal blood sugars. No weight change. No excessive sweating or thirst. No cold intolerance. PHYSICAL EXAMINATION Gen: This is well-developed 55-year-old male laying in bed in no acute respir atory distress. HEENT: Head is atraumatic, normocephalic. Pupils equal, round. Sclerae is anicteric. NECK: Supple. No JVD. No lymphadenopathy. No thyromegaly. LUNGS: Clear to auscultation. No wheezes or rhonchi. No intercostal retractions. HEART: Regular rate and rhythm. No murmur. ABDOMEN: Soft. Bowel sounds are present. No masses. No tenderness. EXTREMITIES: No pedal edema. No calf tenderness. NEUROLOGICAL: Patient is awake, alert and oriented x3. Cranial nerves 2 through 12 are grossly intact. ASSESSMENT AND PLAN 1.non-ST TX: With significantly elevated troponin possibly secondary to coronary artery spasm. Patient is status post cardiac catheterization, continue heparin for 24 hours. 2 atherosclerotic heart disease post TX with 2 stent placement in the LAD patient has been faithful with his medical management. 3 type 2 diabetes: On insulin pump. 4 hypertension: Remain on losartan 50 mg a day and metoprolol 25 mg twice a day. 5 hyperlipidemia: Remain on atorvastatin 80 mg daily. 6 elevated lactic acid: Most likely from his acute TX at this point continue conservative management continue to treat his nonketotic hyperglycemia. 7 ischemic cardiomyopathy: Has been on medical management did not require up till now any diuretics ejection fraction to be calculated by doing an echo in the morning. 8 GI prophylaxis: Patient be on Pepcid 20 mg daily. 9 DVT prophylaxis: Early mobilization and knee-high RICK hose, still on heparin drip at this point. CODE STATUS: Full code. DISCHARGE PLAN Home in the next 24 hours Impression and plan of care have been directed as dictated by the signing physician. Patricia Nolen nurse practitioner acting as scribe for signing physician. Objective - Vital Signs Vital signs: Vital Signs Temp 98.2 F 09/02/21 04:00 Pulse 72 09/02/21 04:00 Resp 16 09/02/21 04:00 BP 110/58 09/02/21 04:00 Pulse Ox 97 09/02/21 04:00 Intake & Output 09/01/21 09/02/21 09/02/21 18:59 06:59 18:59 Intake Total 1408.68 406.981 300 Balance 1408.68 406.981 300 Intake: IV 88.68 300 Heparin Sod,Pork in 0.45% 88.68 NaCl 25,000 unit In 0.45 % NaCl 1 250ml.bag @ 12 UNITS/KG/HR 8.872 mls/hr IV .Q24H [facility] Rx#: [id number] Intake, IV Titration 1200 166.981 Amount Heparin Sod,Pork in 0.45% 166.981 NaCl 25,000 unit In 0.45 % NaCl 1 250ml.bag @ 12 UNITS/KG/HR 8.872 mls/hr IV .Q24H [facility] Rx#: [id number] Sodium Chloride 0.9% 1, 1200 000 ml @ 100 mls/hr IV . Q10H [facility] Rx#:[id number] Oral 120 240 Other: # Voids 1 - Labs CBC & Chem 7: 09/01/21 09:10 09/01/21 09:10 Labs: Abnormal Lab Results - Last 24 Hours (Table) 09/01/21 09/01/21 09/01/21 Range/Units 09:10 09:10 09:10 RBC 4.23 L (4.30-5.90) m/uL Hgb 12.8 L (13.0-17.5) gm/dL Hct 38.6 L (39.0-53.0) % APTT (22.0-30.0) sec Chloride 110 H (98-107) mmol/L Glucose 61 L (74-99) mg/dL POC Glucose (mg/dL) (75-99) mg/dL Hemoglobin A1c 9.6 H (0.0-6.0) % Plasma Lactic Acid Bala (0.7-2.0) mmol/L Calcium 7.9 L (8.4-10.2) mg/dL AST 70 H (17-59) U/L Total Protein 5.7 L (6.3-8.2) g/dL Albumin 2.9 L (3.5-5.0) g/dL HDL Cholesterol 33.60 L (40.00-60.00) mg/dL 09/01/21 09/01/21 09/01/21 Range/Units 09:10 09:10 10:22 RBC (4.30-5.90) m/uL Hgb (13.0-17.5) gm/dL Hct (39.0-53.0) % APTT 62.5 H (22.0-30.0) sec Chloride (98-107) mmol/L Glucose (74-99) mg/dL POC Glucose (mg/dL) 122 H (75-99) mg/dL Hemoglobin A1c (0.0-6.0) % Plasma Lactic Acid Bala 0.6 L (0.7-2.0) mmol/L Calcium (8.4-10.2) mg/dL AST (17-59) U/L Total Protein (6.3-8.2) g/dL Albumin (3.5-5.0) g/dL HDL Cholesterol (40.00-60.00) mg/dL 09/01/21 09/01/21 09/01/21 Range/Units 12:08 14:12 16:43 RBC (4.30-5.90) m/uL Hgb (13.0-17.5) gm/dL Hct (39.0-53.0) % APTT (22.0-30.0) sec Chloride (98-107) mmol/L Glucose (74-99) mg/dL POC Glucose (mg/dL) 163 H 249 H 187 H (75-99) mg/dL Hemoglobin A1c (0.0-6.0) % Plasma Lactic Acid Bala (0.7-2.0) mmol/L Calcium (8.4-10.2) mg/dL AST (17-59) U/L Total Protein (6.3-8.2) g/dL Albumin (3.5-5.0) g/dL HDL Cholesterol (40.00-60.00) mg/dL 09/01/21 09/02/21 Range/Units 20:21 05:33 RBC (4.30-5.90) m/uL Hgb (13.0-17.5) gm/dL Hct (39.0-53.0) % APTT (22.0-30.0) sec Chloride (98-107) mmol/L Glucose (74-99) mg/dL POC Glucose (mg/dL) 111 H 119 H (75-99) mg/dL Hemoglobin A1c (0.0-6.0) % Plasma Lactic Acid Bala (0.7-2.0) mmol/L Calcium (8.4-10.2) mg/dL AST (17-59) U/L Total Protein (6.3-8.2) g/dL Albumin (3.5-5.0) g/dL HDL Cholesterol (40.00-60.00) mg/dL
[2021-09-02 10:59] LABS: Basophils % (A) 0 %; Eosinophils # (A) 0.2 k/uL (0-0.7); Eosinophils % (A) 4 %; HCT 39.5 % (39.0-53.0); HGB 12.6 gm/dL (13.0-17.5); Lymphocytes # (A) 2.1 k/uL (1.0-4.8); Lymphocytes % (A) 35 %; MCH 29.7 pg (25.0-35.0); MCV 92.8 fL (80.0-100.0); Mean Platelet Volume 7.2; Monocytes # (A) 0.2 k/uL (0-1.0); Monocytes % (A) 3 %; Neutrophils # (A) 3.4 k/uL (1.3-7.7); Neutrophils % (A) 56 %; Platelet Count 234 k/uL (150-450); RBC 4.26 m/uL (4.30-5.90); RDW 13.2 % (11.5-15.5); WBC 6.1 k/uL (3.8-10.6)
[2021-09-02 11:31] LABS: African American GFR (CKD) >90 (>60 ml/min/1.73 sqM); Anion Gap 9 mmol/L; Blood Urea Nitrogen 20 mg/dL (9-20); Calcium 7.9 mg/dL (8.4-10.2); Carbon Dioxide 20 mmol/L (22-30); Chloride 108 mmol/L (98-107); Glucose 256 mg/dL (74-99); Non-African American GFR(CKD) >90 (>60 ml/min/1.73 sqM); Potassium 4.1 mmol/L (3.5-5.1); Sodium 137 mmol/L (137-145)
[2021-09-02 11:43] LABS: Glucose,Whole Blood 250 mg/dL (75-99)
[2021-09-02] MEDS: FAMOTIDINE 20 MG TAB PO SCH (12:29)
[2021-09-02] MEDS: METOPROLOL TARTRATE 25 MG TAB PO SCH ×2 (12:29→20:36)
[2021-09-02] MEDS: LOSARTAN 50 MG TAB PO SCH (12:29)
[2021-09-02 12:42] VITALS: BMI 27.9
[2021-09-02 16:53] LABS: Glucose,Whole Blood 192 mg/dL (75-99)
[2021-09-02 20:23] LABS: Glucose,Whole Blood 123 mg/dL (75-99)
[2021-09-02] MEDS: ATORVASTATIN 80 MG TAB PO SCH (20:36)
[2021-09-02] MEDS: SODIUM CHLORIDE 0.9% 1,000 ML IV SCH (20:37)
[2021-09-03 01:32] LABS: Glucose,Whole Blood 166 mg/dL (75-99)
[2021-09-03 01:51] VITALS: RESP 16
[2021-09-03] MEDS: HEPARIN SOD,PORK IN 0.45% NACL 25,000 UNIT in 0.45% NACL 1 250ML.BAG IV SCH (02:49)
[2021-09-03 06:07] LABS: Glucose,Whole Blood 50 mg/dL (75-99)
[2021-09-03] MEDS: INSULIN ASPART (NovoLOG) 100 UNIT/ML VIAL SQ SCH ×5 (06:11→12:11)
[2021-09-03 06:21] LABS: Glucose,Whole Blood 54 mg/dL (75-99)
[2021-09-03 06:50] LABS: Glucose,Whole Blood 70 mg/dL (75-99)
[2021-09-03] MEDS: SODIUM CHLORIDE 0.9% 1,000 ML IV SCH (06:53)
[2021-09-03] MEDS: INSULIN PUMP MEAL BOLUS 1 UNIT MISC MISCELLANE SCH ×2 (06:53→11:59)
[2021-09-03] MEDS ORDERED: CLOPIDOGREL 75 MG TAB PO SCH (09:00)
[2021-09-03] MEDS ORDERED: ASPIRIN 81 MG PO SCH ×2 (09:00)
--- NOTE | 2021-09-03 09:09 | P.PN ---
Subjective Progress Note Date: 09/03/21 Principal diagnosis: Acute coronary syndrome The patient is a pleasant 55-year-old gentleman was known CAD who presented to the hospital with a chest discomfort and ruled in for acute coronary event. He underwent heart catheterization yesterday by Dr. Spicer and followed to have no obstructive CAD. He also underwent an echocardiogram which revealed mildly impaired LV function with EF around 45% He was seen this morning. He is chest pain-free. He would like to go home. C urrently he is on maximize medical treatment including dual antiplatelet therapy along with high intensity statin along with beta carmelina. Objective - Vital Signs Vital signs: Vital Signs Temp 98.6 F 09/03/21 04:00 Pulse 82 09/03/21 04:00 Resp 16 09/03/21 04:00 BP 104/52 09/03/21 04:00 Pulse Ox 96 09/03/21 07:58 Intake & Output 09/02/21 09/03/21 09/03/21 18:59 06:59 18:59 Intake Total 545.56 628.544 934.023 Balance 545.56 628.544 934.023 Weight 73.936 kg Intake: IV 300 Intake, IV Titration 65.56 148.544 934.023 Amount Heparin Sod,Pork in 0.45% 65.56 148.544 34.023 NaCl 25,000 unit In 0.45 % NaCl 1 250ml.bag @ 12 UNITS/KG/HR 8.872 mls/hr IV .Q24H JACQUELYN Rx#: [id number] Sodium Chloride 0.9% 1, 900 000 ml @ 75 mls/hr IV . [id number] JACQUELYN Rx#:[id number] Oral 180 480 Other: Voiding Method Toilet # Voids 2 # Bowel Movements 1 - Constitutional General appearance: Present: no acute distress - Respiratory Respiratory: bilateral: CTA - Cardiovascular Rhythm: regular Heart sounds: normal: S1, S2 - Labs CBC & Chem 7: 09/02/21 10:27 09/02/21 10:27 Labs: Abnormal Lab Results - Last 24 Hours (Table) 09/02/21 09/02/21 09/02/21 Range/Units 10:27 10:27 10:27 RBC 4.26 L (4.30-5.90) m/uL Hgb 12.6 L (13.0-17.5) gm/dL APTT 39.8 H (22.0-30.0) sec Chloride 108 H (98-107) mmol/L Carbon Dioxide 20 L (22-30) mmol/L Glucose 256 H (74-99) mg/dL POC Glucose (mg/dL) (75-99) mg/dL Calcium 7.9 L (8.4-10.2) mg/dL 09/02/21 09/02/21 09/02/21 Range/Units 11:41 16:52 20:22 RBC (4.30-5.90) m/uL Hgb (13.0-17.5) gm/dL APTT (22.0-30.0) sec Chloride (98-107) mmol/L Carbon Dioxide (22-30) mmol/L Glucose (74-99) mg/dL POC Glucose (mg/dL) 250 H 192 H 123 H (75-99) mg/dL Calcium (8.4-10.2) mg/dL 09/03/21 09/03/21 09/03/21 Range/Units 01:27 01:27 06:05 RBC (4.30-5.90) m/uL Hgb (13.0-17.5) gm/dL APTT 88.3 H (22.0-30.0) sec Chloride (98-107) mmol/L Carbon Dioxide (22-30) mmol/L Glucose (74-99) mg/dL POC Glucose (mg/dL) 166 H 50 L (75-99) mg/dL Calcium (8.4-10.2) mg/dL 09/03/21 09/03/21 Range/Units 06:19 06:48 RBC (4.30-5.90) m/uL Hgb (13.0-17.5) gm/dL APTT (22.0-30.0) sec Chloride (98-107) mmol/L Carbon Dioxide (22-30) mmol/L Glucose (74-99) mg/dL POC Glucose (mg/dL) 54 L 70 L (75-99) mg/dL Calcium (8.4-10.2) mg/dL Assessment and Plan Assessment: Assessment #1 coronary artery disease #2 acute coronary syndrome #3 mildly impaired LV function #4 multiple comorbid conditions Plan #1 continue the current medical regimen including dual antiplatelet therapy #2 the patient would like to go home
[2021-09-03] MEDS: FAMOTIDINE 20 MG TAB PO SCH (10:01)
[2021-09-03] MEDS: LOSARTAN 50 MG TAB PO SCH (10:01)
[2021-09-03] MEDS: METOPROLOL TARTRATE 25 MG TAB PO SCH (10:01)
[2021-09-03 11:46] LABS: Glucose,Whole Blood 200 mg/dL (75-99)
[2021-09-03 12:50] VITALS: BP 112/65; PULSE 69; TEMP 98.2
--- NOTE | 2021-09-03 14:23 | P.DS ---
Providers Date of admission: 09/01/21 13:03 Expected date of discharge: 09/03/21 Attending physician: Dayo Wick Consults: 08/31/21 15:23 Consult Physician Urgent Consulting Provider: Rashawn Shelton Consult Reason/Comments: chest pain Do you want consulting provider notified?: Yes Primary care physician: Alejandrina Fierro [facility] Course: HISTORY OF PRESENT ILLNESS -year-old male one of Dr. Fierro's patient with past medical history of CAD, type 2 diabetes on insulin pump, history of hypertension and hyperlipidemia who had 2019 acute STEMI ended up going for 2 drug-eluting stent placement in the LAD successfully and has done very well. Patient ejection fraction at the time was 35-40 tile and continue to follow-up with cardiology regular basis. apparently patient had returned to his regular activity has been doing well until around 10:00 in the morning when he felt not right developed to have significant sweating with chest tightness discomfort with significant shortness of breath nausea vomiting symptoms ended up leading to his left arm and felt awful at some point. Patient ended up asking family member to drive him to the emergency department at [facility] where was seen and evaluated at the time his troponin was elevated at 25.0 with lactic acid mildly elevated as well at 2.0 blood sugar was quite bit high running between 3:15 426. His EKG at the time showed slight ST depression in the lateral lead and partially the inferior leads. Patient was heparinize at this point diagnosed with possible non-ST VT will be admitted to the [facility] cardiology where on alert for the current finding patient probably will going for heart cath by tomorrow. In the meanwhile his blood sugar started coming down slightly patient is chest pain- free after nitroglycerin. 09/01: Patient has been seen by cardiology and started on aspirin, Lipitor, heparin drip, schedule patient for cardiac catheterization today. He is on insulin pump which will be placed on hold for now and started on insulin scale every 4 hours. Insulin pump may be resumed after procedure. Blood work for today is pending. Echocardiogram has been obtained and report is pending Anticipate possible discharge home by tomorrow. 09/02: This morning, patient underwent cardiac catheterization with Dr. NATHANIEL Spicer finding no significant obstructive disease, cardiology has placed him on heparin with plans for 24 hour monitoring and possible discharge on Sunday. He denies having any chest pain or shortness of breath, no lightheadedness or dizziness. Patient has been afebrile, heart rate 72, blood pressure 110/58, pulse ox 97% on room air. Capillary blood glucose running between 81 and 187. Patient to be resumed back on insulin pump. Echocardiogram reveals EF of 45%, mild mitral regurgitation, mild tricuspid regurgitation. 09/03: Patient's doing much better, no chest pain, on exertion, blood sugars are between's 110, to 400, A1c is 9.6, blood pressures are stable, heart rate is stable. Discussed blood sugar monitoring, with free style tee 2 or dexcom, he refuses, he also refused X, as he did during his last office visit, we have to refer him to Dr. Washington, to manage his blood sugars tightly, he estimates his pre-meal insulin load, without the appropriate blood sugar monitoring, he is cleared by cardiology for discharge, using dual antiplatelets, high-dose statin, beta carmelina and we will follow him as an outpatient, Dr. NATHANIEL Spicer, myself, and Dr. Washington REVIEW OF SYSTEMS Constitutional: No fever, no chills, no night sweats. No weight change. No weakness, fatigue or lethargy. No daytime sleepiness. EENT: No headache. No nasal drainage or congestion. No epistaxis. No sore throat. Lungs: no shortness of breath, cough, no sputum production. No wheezing. Cardiovascular: no chest pain and angina, no lower extremity edema. No palpitations. No paroxysmal nocturnal dyspnea. No orthopnea. No lightheadedness or dizziness. No syncopal episodes. Abdominal: No abdominal pain. No nausea, vomiting. No diarrhea. No constipation. No bloody or tarry stools.. No loss of appetite. Genitourinary: No dysuria, increased frequency, urgency. No urinary retention. Musculoskeletal: No myalgias. No muscle weakness, no gait dysfunction, no frequent falls. No back pain. No neck pain. Integumentary: No wounds, no lesions. No rash or pruritus. No unusual bruising. No change in hair or nails. Neurologic: No aphasia. No facial droop. No change in mentation. No head injury. No headache. No paralysis. No paresthesia. Psychiatric: No depression. No anxiety. No mood swings. Endocrine: No abnormal blood sugars. No weight change. No excessive sweating or thirst. No cold intolerance. Final diagnosis 1.non-ST VT: With significantly elevated troponin possibly secondary to coronary artery spasm. Patient is status post cardiac catheterization, continue medical management, no new stents placed, heart cath shows stented segment in the mid LAD is patent, RCA and PDA is free of disease 2 atherosclerotic heart disease post VT with 2 stent placement in the LAD patient has been faithful with his medical management. 3 type 2 diabetes: On insulin pump. 4 hypertension: Remain on losartan 50 mg a day and metoprolol 25 mg twice a day. 5 hyperlipidemia: Remain on atorvastatin 80 mg daily. 6 elevated lactic acid: Most likely from his acute VT at this point continue conservative management continue to treat his nonketotic hyperglycemia. 7 ischemic cardiomyopathy: Has been on medical management did not require up till now any diuretics ejection fraction to be calculated by doing an echo in the morning. 8 GI prophylaxis: Patient be on Pepcid 20 mg daily. 9 DVT prophylaxis: Early mobilization and knee-high RICK hose, still on heparin drip at this point. CODE STATUS: Full code. Patient Condition at Discharge: Good Plan - Discharge Summary Discharge Rx Participant: Yes New Discharge Prescriptions: New Clopidogrel [Plavix] 75 mg PO DAILY #30 tab Continue Insulin Aspart (For Pump) [NovoLOG (For Pump)] 0.01 unit SQ-PUMP CONTINUOUS Aspirin 81 mg PO DAILY chew Atorvastatin [Lipitor] 80 mg PO HS #30 tab Nitroglycerin Sl Tabs [Nitrostat] 0.4 mg SUBLINGUAL Q5M PRN #25 tab PRN Reason: Chest Pain Losartan [Cozaar] 50 mg PO DAILY Metoprolol Tartrate [Lopressor] 25 mg PO BID Discharge Medication List Insulin Aspart (For Pump) [NovoLOG (For Pump)] 0.01 unit SQ-PUMP CONTINUOUS 01/27/19 [History] Aspirin 81 mg PO DAILY chew 01/30/19 [Rx] Atorvastatin [Lipitor] 80 mg PO HS #30 tab 01/30/19 [Rx] Nitroglycerin Sl Tabs [Nitrostat] 0.4 mg SUBLINGUAL Q5M PRN #25 tab 01/30/19 [Rx] Metoprolol Tartrate [Lopressor] 25 mg PO BID 05/18/21 [History] Losartan [Cozaar] 50 mg PO DAILY 08/31/21 [History] Clopidogrel [Plavix] 75 mg PO DAILY #30 tab 09/03/21 [Rx] Follow up Appointment(s)/Referral(s): Nathaniel Spicer MD [STAFF PHYSICIAN] - 1 Week Alejandrina Fierro MD [Primary Care Provider] - 1-2 days Travis Washington MD [REFERRING] - 1 Week
== END 2021-09-03 15:06 | disposition home or self-care (01) | DRG 281 ==
LOC: EC 11:01 → 6NMEDSUR 15:42 → 3SCARD 20:52 → OBSVTOIN 09-01 13:03
PROVIDERS: ADMIT Internal Medicine Geriatric Medicine; ATTEND Internal Medicine Geriatric Medicine
PROC: 4A023N7 Measurement of Cardiac Sampling and Pressure, Left Heart, Percutaneous Approach (ICD-10-PCS; principal; 2021-09-02 07:30)
PROC: B2111ZZ Fluoroscopy of Multiple Coronary Arteries using Low Osmolar Contrast (ICD-10-PCS; principal; 2021-09-02 07:30)
DX: I21.4 Non-ST elevation (NSTEMI) myocardial infarction (principal); E87.2 Acidosis; E10.65 Type 1 diabetes mellitus with hyperglycemia; E78.5 Hyperlipidemia, unspecified; E86.0 Dehydration; I10 Essential (primary) hypertension; I25.10 Atherosclerotic heart disease of native coronary artery without angina pectoris; I25.2 Old myocardial infarction; I25.5 Ischemic cardiomyopathy; J45.909 Unspecified asthma, uncomplicated; Z79.4 Long term (current) use of insulin; Z79.82 Long term (current) use of aspirin; Z79.899 Other long term (current) drug therapy; Z80.3 Family history of malignant neoplasm of breast; Z95.5 Presence of coronary angioplasty implant and graft; Z96.41 Presence of insulin pump (external) (internal); I08.1 Rheumatic disorders of both mitral and tricuspid valves; Z28.310 Unvaccinated for COVID-19
CPT/HCPCS: 36415; 71046; 80048; 80053; 80061; 81003; 83036; 83605; 83690; 83735; 83880; 84484; 85025; 85610; 85730; 87502; 87635; 93005; 93306; 93458; 94760; 96361; 96374; 96375; 99285

== ENCOUNTER → 2021-09-13 | Outpatient (CLI) | payer BC ==
--- NOTE | 2021-09-13 13:33 | XR ---
EXAMINATION TYPE: XR Hip Complete LT DATE OF EXAM: 09/13/2021 COMPARISON: None HISTORY: Posterior left hip pain x1 year TECHNIQUE: 2 view left hip FINDINGS: Femoral head articulates with the acetabulum. Joint space has mild narrowing. No acute frac ture or dislocation is evident. IMPRESSION: 1. Mild degenerative joint space narrowing left hip
== END | disposition home or self-care (01) ==
LOC: RADXRMAIN 12:26
PROVIDERS: ATTEND Family Medicine
DX: M16.12 Unilateral primary osteoarthritis, left hip (principal)
CPT/HCPCS: 73502